=== PATIENT | female | born 1975 | race Caucasian/White ===

== ENCOUNTER → 2021-11-26 08:43 | Outpatient (CLI) | payer OTHER, MEDICAID, SELFPAY ==
[2021-11-26 09:37] LABS: Add Manual Diff / Slide Review NO; Basophils Absolute Auto 0 /uL (0-100); Basophils Percent Auto 0.7 % (0-2); Eosinophils Absolute Auto 100 /uL (0-450); Eosinophils Percent Auto 2.7 % (2-4); Hematocrit 40.6 % (36-46); Hemoglobin 13.6 g/dL (12.0-16.0); Lymphocytes Absolute Auto 1100 /uL (1100-4500); Lymphocytes Percent Auto 28.2 % (25-40); Mean Corpuscular HGB Conc 33.5 % (30-36); Mean Corpuscular Hemoglobin 30.2 PG (26-34); Mean Corpuscular Volume 90.1 fL (80-100); Monocytes Absolute Auto 300 /uL (0-900); Monocytes Percent Auto 7.9 % (3-14); Neutrophils Absolute Auto 2300 /uL (1500-7000); Neutrophils Percent Auto 60.5 % (50-75); Platelet Count 202 X10^3/uL (150-400); Red Blood Cell Count 4.51 X10^6/uL (4.0-5.2); Red Cell Distribution Width 13.9 % (11.6-14.8); White Blood Cell Count 3.8 X10^3/uL (4.5-11.0)
[2021-11-26 09:56] LABS: Erythrocyte Sedimentation Rate 8 MM/HR (0-20)
[2021-11-26 10:06] LABS: HEMOLYSIS < 15 (0-50)
[2021-11-26 10:13] LABS: Vitamin D 25 Hydroxy (D3) 79.3 ng/mL (30.0-100.0)
[2021-11-26 10:14] LABS: Alanine Aminotransferase 61 IU/L (<35); Albumin 4.5 g/dL (3.5-5.0); Albumin Globulin Ratio 1.4 (1.0-2.8); Alkaline Phosphatase 80 U/L (38-126); Aspartate Aminotransferase 40 IU/L (14-36); BUN Creatinine Ratio 23.5 (6-22); Bilirubin Total 0.5 mg/dL (0.2-1.3); Blood Urea Nitrogen 19 mg/dL (7-17); Calcium 9.4 mg/dL (8.4-10.2); Carbon Dioxide 26 mmol/L (22-32); Chloride 103 mmol/L (98-107); Cholesterol 173 mg/dL (140-199); Estimated Glomerular Filt Rate > 60 mL/min (>60); Globulin 3.2 g/dL (1.7-4.1); Glucose 102 mg/dL (70-100); HDL Cholesterol 59 mg/dL (40-60); LDL Cholesterol Calculated 100 mg/dL (<100); Potassium 4.2 mmol/L (3.4-5.1); Sodium 139 mmol/L (137-145); Total Protein 7.7 g/dL (6.3-8.2); Triglycerides 70 mg/dL (35-150)
[2021-11-26 19:57] LABS: Free T4, Direct Thyroxine 0.85 ng/dL (0.78-2.19); T4 Total Thyroxine 5.92 ug/dL (5.5-11.0); T7 (Free Thyroxine Index) 1.87 (1.65-3.89); Triiodothryronine T3 Uptake 31.6 % (23.5-40.5)
[2021-11-26 20:10] LABS: Thyroid Stimulating Hormone 0.912 uIU/mL (0.47-4.68)
[2021-11-27 02:18] LABS: Folate 12.2 ng/mL (2.76-20.0); Vitamin B12 910 pg/mL (239-931)
[2021-11-29 22:23] LABS: ANA Screen, IFA Positive (.)
== END ==
PROVIDERS: PCP Family Medicine; Referring Provider Family Medicine; Visit Provider Family Medicine
DX: M06.9 Rheumatoid arthritis, unspecified (principal); M32.9 Systemic lupus erythematosus, unspecified; Z13.220 Encounter for screening for lipoid disorders; E03.9 Hypothyroidism, unspecified; E56.9 Vitamin deficiency, unspecified
CPT/HCPCS: 36415; 80053; 80061; 82306; 82607; 82746; 84436; 84439; 84443; 84479; 85025; 85651; 86038

== ENCOUNTER → 2022-01-02 08:55 | Outpatient (CLI) | payer OTHER, MEDICAID, SELFPAY ==
[2022-01-02 10:44] LABS: Free T4, Direct Thyroxine 0.72 ng/dL (0.78-2.19)
[2022-01-02 10:45] LABS: Follicle Stimulating Hormone 19.9 mIU/mL; Luteinizing Hormone 27.2 mIU/mL; Prolactin 7.7 ng/mL (3.0-18.6)
[2022-01-02 10:58] LABS: Thyroid Stimulating Hormone 0.668 uIU/mL (0.47-4.68)
[2022-01-02 11:00] LABS: Estradiol, Total 85.6 pg/mL
[2022-01-03 10:15] LABS: Sex Hormone Binding Globulin 71.6 nmol/L (24.6-122.0)
[2022-01-04 00:09] LABS: Adrenocorticotropic Hormone 16.2 pg/mL (7.2-63.3)
[2022-01-04 22:38] LABS: IGF-1 199 ng/mL (74-239)
[2022-01-09 11:54] LABS: Testosterone % Fr + Wkly bound 8.4 % (3.0-18.0); Testosterone, Total 119.4 ng/dL (.)
== END ==
PROVIDERS: PCP Family Medicine; Referring Provider Family Medicine; Visit Provider Family Medicine
DX: N64.52 Nipple discharge (principal); E03.9 Hypothyroidism, unspecified; M06.9 Rheumatoid arthritis, unspecified; M32.9 Systemic lupus erythematosus, unspecified
CPT/HCPCS: 36415; 82024; 82670; 83001; 83002; 84144; 84146; 84270; 84305; 84403; 84439; 84443

== ENCOUNTER 2022-03-07 16:31 | Emergency (ER) | payer OTHER, MEDICAID, SELFPAY ==
[2022-03-07 16:40] VITALS: BP 129/84; PULSE 77; RESP 18; TEMP 36.4; O2SAT 99; BMI 24.1
--- NOTE | 2022-03-07 16:52 | DI.RAD.S_ITS ---
PROCEDURE: XR CHEST 1V INDICATIONS: chest pain TECHNIQUE: One view of the chest was acquired. COMPARISON: None. FINDINGS: Surgical changes and devices: None. Lungs and pleura: Lungs are clear. No pleural effusions or pneumothorax. Mediastinum: Mediastinal contours appear normal. Heart size is normal. Bones and chest wall: No suspicious bony lesions. Overlying soft tissues appear unremarkable. IMPRESSION: No acute cardiopulmonary abnormalities or focal airspace disease. Dictated by: Scar Eisenberg M.D. on 03/07/2022 at 17:59 Approved by: Scar Eisenberg M.D. on 03/07/2022 at 17:59
--- NOTE | 2022-03-07 17:02 | ED.CHESTPAIN ---
HPI - Chest Pain General Chief Complaint: Chest Pain Stated Complaint: Breast pain Time Seen by Provider: 03/07/22 17:02 Source: patient Mode of arrival: Ambulatory Limitations: no limitations Patient History alcohol intake frequency: holidays/special occasions only Substance Use Type: does not use Exam Initial Vital Signs Initial Vital Signs: Vital Signs Temperature 97.6 F 03/07/22 16:40 Pulse Rate 77 03/07/22 16:40 Respiratory Rate 18 03/07/22 16:40 Blood Pressure 129/84 03/07/22 16:40 Pulse Oximetry 99 03/07/22 16:40 Oxygen Delivery Method 03/07/22 16:40 Course Orders Ordered: ED Orders 03/07/22 16:52 XR chest 1V Stat COVID19 -Nasal RAPID/Pre-Proc Stat Complete Blood Count AUTO DIFF Stat Comprehensive Metabolic Panel Stat Lipase Stat Magnesium Stat Partial Thromboplastin Time Stat Prothrombin Time INR Stat Troponin & CK Cardiac Panel Stat EKG-12 Lead Stat Discontinued Medications Aspirin (Aspirin 81 Mg Chew Tab) 324 mg PO NOW ONE Stop: 03/07/22 16:53 Vital Signs Vital signs: Vital Signs - 8 hr 03/07/22 16:40 Temperature 97.6 F Pulse Rate 77 Respiratory Rate 18 Blood Pressure 129/84 Pulse Oximetry 99 Oxygen Delivery Method Room Air Discharge Plan Departure Referrals: Helga Nelson ARNP [Primary Care Provider] -
[2022-03-07 17:48] LABS: COVID19 -Nasal RAPID Negative (Negative)
[2022-03-07 17:49] LABS: Add Manual Diff / Slide Review NO; Basophils Absolute Auto 0 /uL (0-100); Basophils Percent Auto 0.6 % (0-2); Eosinophils Absolute Auto 100 /uL (0-450); Eosinophils Percent Auto 1.4 % (2-4); Hematocrit 40.2 % (36-46); Hemoglobin 13.5 g/dL (12.0-16.0); Lymphocytes Absolute Auto 1000 /uL (1100-4500); Lymphocytes Percent Auto 22.4 % (25-40); Mean Corpuscular HGB Conc 33.5 % (30-36); Mean Corpuscular Hemoglobin 29.9 PG (26-34); Mean Corpuscular Volume 89.3 fL (80-100); Monocytes Absolute Auto 300 /uL (0-900); Neutrophils Absolute Auto 3100 /uL (1500-7000); Neutrophils Percent Auto 68.6 % (50-75); Platelet Count 207 X10^3/uL (150-400); Red Cell Distribution Width 12.8 % (11.6-14.8); White Blood Cell Count 4.5 X10^3/uL (4.5-11.0)
[2022-03-07 17:51] LABS: Prothrombin Time 11.6 SECONDS (10.1-12.7)
[2022-03-07 17:54] LABS: PTT Partial Thromboplastin Tim 31 SECONDS (26-36)
[2022-03-07 17:57] LABS: Alanine Aminotransferase 49 IU/L (<35); Albumin 4.9 g/dL (3.5-5.0); Albumin Globulin Ratio 1.4 (1.0-2.8); Alkaline Phosphatase 87 U/L (38-126); Aspartate Aminotransferase 36 IU/L (14-36); BUN Creatinine Ratio 20.3 (6-22); Bilirubin Total 0.4 mg/dL (0.2-1.3); Blood Urea Nitrogen 14 mg/dL (7-17); Calcium 9.4 mg/dL (8.4-10.2); Carbon Dioxide 25 mmol/L (22-32); Chloride 99 mmol/L (98-107); Creatine Kinase 85 U/L (30-135); Estimated Glomerular Filt Rate > 60 mL/min (>60); Globulin 3.6 g/dL (1.7-4.1); Glucose 81 mg/dL (70-100); HEMOLYSIS < 15 (0-50); Lipase 42 U/L (23-300); Potassium 4.4 mmol/L (3.4-5.1); Sodium 138 mmol/L (137-145); Total Protein 8.5 g/dL (6.3-8.2)
[2022-03-07 18:08] LABS: Troponin I < 0.012 ng/mL (0.01-0.034)
--- NOTE | 2022-03-07 18:18 | ED_ITS ---
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 Patient states infections have been multiple times over the last few years they been less frequent since she is moved here to [place] from [place]. She states she had 2 episodes in 2020. She states both times the area opened up and drained on its own, she has had aspiration at least once before. Patient states it is the right breast she states that the skin is very thin on the underside but the breast itself feels very hard and full. She states painful with rotation of her neck and movement of her upper body. She denies any redness or warmth. Patient denies any fevers or chills. She had nausea and vomiting last night which has stopped since this afternoon. She denies any diarrhea or constipation, no urinary symptoms. Patient states no shortness of breath. No pain in the opposite breast. Patient surgical history she states she is had emergent x3, developed an subsequent abdominal infection several months after her last and had excision of the muscle. Patient states she had implants, she went back for reduction but the implants were kept in place. She is not actively . She denies tobacco, alcohol or illicit. Her primary care is Helga Nelson. Patient states her treatments before were in [place], she states that she did have a mammogram and ultrasound in December. She states she has a strange reaction to Benadryl, and she had a reaction with rash and itching after 3 days of ciprofloxacin. Related Data Previous Rx's Medication Instructions Recorded clindamycin HCl 300 mg capsule 300 mg PO QID #40 caps 03/07/22 Allergies Allergy/AdvReac Type Severity Reaction Status Date / Time No Known Drug Allergies Allergy Verified 03/07/22 20:08 Review of Systems Review of Systems ROS Unobtainable: All systems reviewed & are unremarkable except as noted in HPI and below Patient History alcohol intake frequency: holidays/special occasions only Substance Use Type: does not use Exam Narrative Exam Narrative: GENERAL: Alert and oriented x three, well-appearing female in mild distress. HEENT: Head normocephalic, atraumatic, EOMI, pupils reactive, face symmetric, moist mucous membranes NECK: Supple, full range of motion CARDIOVASCULAR: Regular rate and rhythm without murmurs, rubs or gallops. Patient has swelling of the right breast, no warmth, erythema swelling of the sk in, the right breast does appear somewhat indurated and hard. Patient has significant scarring on the underside of the breast but no fluctuance or open area or drainage. There are no open wounds. RESPIRATORY: Breath sounds equal bilaterally, no wheezes rales or rhonchi. ABDOMEN: Soft, nontender. Normoactive bowel sounds all 4 quadrants. No guarding or rebound, rigidity, no mass : No CVA tenderness EXTREMITIES: Normal range of motion, no clubbing or edema. Neurovascularly intact NEUROLOGICAL: Cranial nerves II through XII grossly intact. Moving all extremities SKIN: Warm, dry, no petechiae, no rashes or lesions. Initial Vital Signs Initial Vital Signs: Vital Signs Temperature 97.6 F 03/07/22 16:40 Pulse Rate 77 03/07/22 16:40 Respiratory Rate 18 03/07/22 16:40 Blood Pressure 129/84 03/07/22 16:40 Pulse Oximetry 99 03/07/22 16:40 Oxygen Delivery Method 03/07/22 16:40 Course Orders Ordered: ED Orders 03/07/22 16:52 XR chest 1V Stat EKG-12 Lead Stat 03/07/22 16:54 COVID19 -Nasal RAPID/Pre-Proc Stat 03/07/22 17:32 Complete Blood Count AUTO DIFF Stat Comprehensive Metabolic Panel Stat Lipase Stat Magnesium Stat Partial Thromboplastin Time Stat Prothrombin Time INR Stat Troponin & CK Cardiac Panel Stat 03/07/22 18:37 US breast RT limited Stat Discontinued Medications Aspirin (Aspirin 81 Mg Chew Tab) 324 mg PO NOW ONE Stop: 03/07/22 16:53 Clindamycin HCl (Clindamycin 150 Mg Capsule) 300 mg PO NOW ONE Stop: 03/07/22 20:04 Last Admin: 03/07/22 20:08 Dose: 300 mg Documented By: [facility]NG Vital Signs Vital signs: Vital Signs - 8 hr 03/07/22 20:06 Pulse Rate 74 Blood Pressure 119/75 Pulse Oximetry 98 Oxygen Delivery Method Room Air MDM - Chest Pain Lab Data Result diagrams: 03/07/22 17:32 03/07/22 17:32 Labs: Lab Results 03/07/22 03/07/22 03/07/22 Range/Units 16:54 17:32 17:32 WBC 4.5 (4.5-11.0) X10^3/uL RBC 4.50 (4.0-5.2) X10^6/uL Hgb 13.5 (12.0-16.0) g/dL Hct 40.2 (36-46) % MCV 89.3 (80-100) fL MCH 29.9 (26-34) PG MCHC 33.5 (30-36) % RDW 12.8 (11.6-14.8) % Plt Count 207 (150-400) X10^3/uL Neut % (Auto) 68.6 (50-75) % Lymph % (Auto) 22.4 L (25-40) % Coal % (Auto) 7.0 (3-14) % Eos % (Auto) 1.4 L (2-4) % Baso % (Auto) 0.6 (0-2) % Neut # (Auto) 3100 (9573-6494) /uL Lymph # (Auto) 1000 L (7156-8083) /uL Coal # (Auto) 300 (0-900) /uL Eos # (Auto) 100 (0-450) /uL Baso # (Auto) 0 (0-100) /uL PT 11.6 (10.1-12.7) SECONDS INR 1.0 (0.9-1.3) APTT 31 (26-36) SECONDS Sodium (137-145) mmol/L Potassium (3.4-5.1) mmol/L Chloride (98-107) mmol/L Carbon Dioxide (22-32) mmol/L BUN (7-17) mg/dL Creatinine (0.52-1.04) mg/dL Estimated GFR (>60) mL/min BUN/Creatinine Ratio (6-22) Glucose (70-100) mg/dL Calcium (8.4-10.2) mg/dL Magnesium (1.6-2.3) mg/dL Total Bilirubin (0.2-1.3) mg/dL AST (14-36) IU/L ALT (<35) IU/L Alkaline Phosphatase (38-126) U/L Total Creatine Kinase (30-135) U/L CK-MB (CK-2) CK-MB (CK-2) Rel Index Troponin I (0.01-0.034) ng/mL Total Protein (6.3-8.2) g/dL Albumin (3.5-5.0) g/dL Globulin (1.7-4.1) g/dL Albumin/Globulin Ratio (1.0-2.8) Lipase (23-300) U/L SARS-CoV-2 (PCR) Negative (Negative) 03/07/22 Range/Units 17:32 WBC (4.5-11.0) X10^3/uL RBC (4.0-5.2) X10^6/uL Hgb (12.0-16.0) g/dL Hct (36-46) % MCV (80-100) fL MCH (26-34) PG MCHC (30-36) % RDW (11.6-14.8) % Plt Count (150-400) X10^3/uL Neut % (Auto) (50-75) % Lymph % (Auto) (25-40) % Coal % (Auto) (3-14) % Eos % (Auto) (2-4) % Baso % (Auto) (0-2) % Neut # (Auto) (2142-7325) /uL Lymph # (Auto) (2840-8152) /uL Coal # (Auto) (0-900) /uL Eos # (Auto) (0-450) /uL Baso # (Auto) (0-100) /uL PT (10.1-12.7) SECONDS INR (0.9-1.3) APTT (26-36) SECONDS Sodium 138 (137-145) mmol/L Potassium 4.4 (3.4-5.1) mmol/L Chloride 99 (98-107) mmol/L Carbon Dioxide 25 (22-32) mmol/L BUN 14 (7-17) mg/dL Creatinine 0.69 (0.52-1.04) mg/dL Estimated GFR > 60 (>60) mL/min BUN/Creatinine Ratio 20.3 (6-22) Glucose 81 (70-100) mg/dL Calcium 9.4 (8.4-10.2) mg/dL Magnesium 2.0 (1.6-2.3) mg/dL Total Bilirubin 0.4 (0.2-1.3) mg/dL AST 36 (14-36) IU/L ALT 49 H (<35) IU/L Alkaline Phosphatase 87 (38-126) U/L Total Creatine Kinase 85 (30-135) U/L CK-MB (CK-2) TNP CK-MB (CK-2) Rel Index TNP Troponin I < 0.012 (0.01-0.034) ng/mL Total Protein 8.5 H (6.3-8.2) g/dL Albumin 4.9 (3.5-5.0) g/dL Globulin 3.6 (1.7-4.1) g/dL Albumin/Globulin Ratio 1.4 (1.0-2.8) Lipase 42 (23-300) U/L SARS-CoV-2 (PCR) (Negative) Imaging Data Chest x-ray: Radiologist's Impression: Close Chest X-Ray (Signed) Scar Eisenberg - 03/07/22 Launch?[place] [address] XRay Report Signed Patient: Yris Cadet MR#: [id number] : 1975 Acct:[id number] Age/Sex: 46 / F Date of Service: 03/07/22 Loc: ED Accession Number: [id number] ?? Procedure: XR chest 1V Ordering Provider: Lisa Tsang D.O. PROCEDURE:? XR CHEST 1V ? INDICATIONS:? chest pain ? TECHNIQUE:? One view of the chest was acquired.? ? COMPARISON:? None. ? FINDINGS:? ? Surgical changes and devices:? None.? ? Lungs and pleura:? Lungs are clear.? No pleural effusions or pneumothorax.? ? Mediastinum:? Mediastinal contours appear normal.? Heart size is normal.? ? Bones and chest wall:? No suspicious bony lesions.? Overlying soft tissues appear unremarkable.? ? IMPRESSION:? No acute cardiopulmonary abnormalities or focal airspace disease. ? Dictated by: Scar Eisenberg M.D. on 03/07/2022 at 17:59 ? ? Approved by: Scar Eisenberg M.D. on 03/07/2022 at 17:59?? breast US: Radiologist's Impression: No sonographic abnormalities identified upper aspect of right breast. diesel technician mechanic noted that the patient stated no discomfort or pain on the underside of the breast. ECG Data Attestation: I personally reviewed and interpreted this ECG as follows: Prior ECG tracings: not available for review Interpretation: Sinus rhythm rate of 70 6p are 126 QRS 82 QTC 14. No acute ST elevation or depression noted. MDM Narrative Medical decision making narrative: This is a 46-year-old female with history of autoimmune disease including lupus, rheumatoid arthritis, Sjogren's and hypothyroidism with recurrent breast abscess which she states has been drained but more typically just drain on their own. She is got induration pain and swelling of the breast, no warmth or erythema but highly suspicious based on her past history. She does not appear septic, she is nontoxic appearing. Her labs including CBC, CMP, LFTs, troponin and lipase are negative except for very mildly elevated LFTs. Chest x-ray was negative for acute change. EKG shows sinus rhythm. Patient is afebrile without tachycardic or white count here in the department. Patient's right wrist is indurated but without clear fluctuance. Ultrasound was obtained. Is negative for obvious abscess. Discussed with tach underside of the breast was not scanned but patient was adamant that that was not where her pain. Suspect recurrent mastitis, patient started on oral antibiotics she is unsure if she is ever had MRSA in the past. Did give her referral to follow-up with General surgery if she does develop abscess, she has good follow-up with primary care and they have obtained ultrasounds in the past. She has discussed with her physician about following with breast surgeon which I think is very appropriate but there is not 1 locally available and she is not been able to establish an appointment yet. Discharge Plan Departure Patient Disposition: Home Clinical Impression: Mastitis Instructions: DI for Mastitis Activity Restrictions/Additional Instructions: Follow-up with your physician for recheck, if you have persistent symptoms I would recommend repeat ultrasound imaging. If an abscess is found referral to surgery or a breast surgeon is recommended. We do not have a dedicated breast surgeon here locally but referral is included to Dr. Banuelos our local general surgeon. Take antibiotics until completely gone. Prescription sent to [facility] in [place]. Please return for fevers, increasing pain, new drainage, persistent vomiting, skin changes, worsening chest pain or shortness of breath or other new or concerning changes. Prescriptions: New clindamycin HCl 300 mg capsule 300 mg PO QID Qty: 40 0RF Referrals: Helga Nelson ARNP [Primary Care Provider] - Ofe Banuelos MD [Physician] - Stand Alone Forms: Patient Portal/API
--- NOTE | 2022-03-07 18:37 | DI.US.S_ITS ---
PROCEDURE: US BREAST RT LIMITED COMPARISON: None. INDICATIONS: PAIN, INDURATION; HISTORY ABSCESS FINDINGS: Multiple grayscale images of the area of clinical concern involving the right breast upper aspect near the 12 o'clock position demonstrates no sonographic abnormalities. No abnormal mass, abnormal abnormal fluid collection, no disturbed parenchymal architecture. Normal overlying skin. IMPRESSION: No sonographic abnormalities identified in the upper aspect of the right breast. BI-RADS 1: Negative Dictated by: Scar Eisenberg M.D. on 03/07/2022 at 19:49 Approved by: Scar Eisenberg M.D. on 03/07/2022 at 19:51
[2022-03-07 20:06] VITALS: BP 119/75; PULSE 74; O2SAT 98
[2022-03-07] MEDS: CLINDAMYCIN 150 MG CAPSULE 300 MG PO (20:08)
--- NOTE | 2022-03-07 20:14 | PC.NURSE ---
pt reports having pain in right breast. denies any erythemia on breast but painful to touch. has history of abscess in breast
== END 2022-03-07 20:18 | disposition home or self-care (01) ==
PROVIDERS: Emergency Medicine; Emergency Provider Emergency Medicine; PCP Family Medicine
DX: N61.0 Mastitis without abscess (principal); R07.9 Chest pain, unspecified; Z20.822 Contact with and (suspected) exposure to COVID-19
CPT/HCPCS: 71045; 76642; 80053; 82550; 83690; 83735; 84484; 85025; 85610; 85730; 87635; 93005; 93010; 99283; 99284; C9803

== ENCOUNTER → 2022-05-15 20:06 | Outpatient (ROUT) | payer OTHER, MEDICAID, SELFPAY ==
[2022-05-15 20:18] LABS: Appearance Urine UA CLEAR; Bilirubin Urine UA NEGATIVE (NEGATIVE); Color Urine UA YELLOW; Glucose Urine UA NEGATIVE (Negative); Ketones Urine UA NEGATIVE (NEGATIVE); Leukocyte Esterase Urine UA NEGATIVE (NEGATIVE); Nitrite Urine UA NEGATIVE (Negative); Occult Blood Urine UA NEGATIVE (Negative); Protein Urine UA NEGATIVE (Negative); Urobilinogen Urine UA 0.2 E.U./dL (0.2)
[2022-05-15 20:34] LABS: Bacteria Urine Occasional (0-1); Culture Indicated Urine Cult Not Indicated; RBC Urine 0-1/HPF (0-5/HPF); Squamous Epithelial Cell Urine 0-1 /HPF (0-5/HPF); WBC Urine 0-1/HPF (0-5/HPF)
== END ==
PROVIDERS: PCP Family Medicine; Visit Provider Family Medicine
DX: R35.0 Frequency of micturition (principal)
CPT/HCPCS: 81001

== ENCOUNTER → 2022-10-15 07:20 | Outpatient (CLI) | payer OTHER, MEDICAID, SELFPAY ==
[2022-10-15 09:28] LABS: Free T3, Triiodothyronine Free 3.26 pg/mL (2.77-5.27); Free T4, Direct Thyroxine 0.83 ng/dL (0.78-2.19)
[2022-10-16 06:36] LABS: Thyroid Peroxidase Antibodies <9 IU/mL (0-34)
== END ==
PROVIDERS: PCP Family Medicine; Referring Provider Nurse Practitioner; Visit Provider Nurse Practitioner
DX: E03.9 Hypothyroidism, unspecified (principal)
CPT/HCPCS: 36415; 83036; 84439; 84443; 84481; 86376

== ENCOUNTER 2023-03-14 13:46 | Emergency (ER) | payer OTHER, MEDICAID, SELFPAY ==
[2023-03-14] VITALS (15 sets, daily range): BP systolic 116–158; BP diastolic 60–95; PULSE 52–70; RESP 12–28; TEMP 36.8; O2SAT 95–100; BMI 24.6
--- NOTE | 2023-03-14 14:41 | ED.HA ---
HPI - Headache <Flower Swain PA-C - Last Filed: 03/14/23 19:41> General Chief Complaint: Headache Stated Complaint: Migraine two wks Time Seen by Provider: 03/14/23 14:00 Mode of arrival: Ambulatory History of Present Illness HPI Narrative: Patient is a 47-year-old female presenting to the emergency department for migraine which has been present for the last 2-3 weeks. She is notable history of factor 5 Leiden, lupus, Sjogren's and rheumatoid arthritis. She states she has not taking anticoagulants is not on any medications to treat her rheumatological conditions at present. She came in for evaluation because she is noted blurry vision for the last 2 3 days. She states that when she stands up, vision narrows like a tunnel, but while sitting her vision has a ?jiggling? sensation to it. She endorses light sensitivity, nausea for the last 2-3 weeks. She reports getting 2-3 hours of sleep at night. She endorses a previous clot in her left groin after the of her child 7 years ago. She states she chronically has body aches, but denies fever. On evaluation at the walk-in clinic this morning, she exhibited left hand weakness. She was not aware this before. She denies any previous consistent left-sided weakness. She denies any numbness. She endorses that her headache is present on the right side of her face and in a band around. He notes the pain radiates down into her right posterior neck. She denies tearing or nasal discharge. He denies fever but endorses right-sided neck pain. She reports she generally gets migraines monthly, but this most recent episode is behaving differently because it was lasting longer than normal. She does note that she has been avoiding driving recently because she feels her response time is lagging. She also reports that she seems to be dropping cups more frequently which she attributed to her rheumatological conditions. She states that she had a hysterectomy 7 years ago, but does state she uses hormone replacement therapy. Related Data Previous Rx's Medication Instructions Recorded clindamycin HCl 300 mg capsule 300 mg PO QID #40 caps 03/07/22 naproxen 500 mg tablet 500 mg PO BID PRN pain 7 days #14 03/14/23 tabs ondansetron 4 mg disintegrating 4 mg PO Q8H PRN nausea and 03/14/23 tablet vomiting 3 days #12 tabs Allergies Allergy/AdvReac Type Severity Reaction Status Date / Time No Known Drug Allergies Allergy Verified 03/14/23 13:14 Review of Systems <Flower Swain PA-C - Last Filed: 03/14/23 19:41> Review of Systems Narrative: see HPI Patient History <Flower Swain PA-C - Last Filed: 03/14/23 19:41> Social History Smoking Status: Never smoker Smoking Status: Never smoker alcohol intake frequency: holidays/special occasions only Substance Use Type: does not use Exam <Flower Swain PA-C - Last Filed: 03/14/23 19:41> Initial Vital Signs Initial Vital Signs: Vital Signs Temperature 98.2 F 03/14/23 14:01 Pulse Rate 70 03/14/23 14:01 Respiratory Rate 18 03/14/23 14:01 Blood Pressure 158/95 H 03/14/23 14:01 Pulse Oximetry 99 03/14/23 14:01 Oxygen Delivery Method Room Air 03/14/23 14:01 GENERAL: 47 year old patient appears stated age. Well-developed patient, in no acute distress. HEAD: Atraumatic. Normocephalic. EYES: Pupils equal round and reactive. Extraocular motions intact with some tenderness on movement. No scleral icterus. No injection or drainage. ENT: Nose without bleeding, purulent drainage. NECK: Trachea midline. Non tender. Tenderness to palpation of the right side of patient's neck. CARDIOVASCULAR: Regular rate and rhythm without murmurs, gallops, or rubs. RESPIRATORY: Clear to auscultation. Breath sounds equal bilaterally. No wheezes, rales, or rhonchi. 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 NEURO: AOx3. CN 3 through 12 intact bilaterally SKIN: No rash or erythema of visible areas <Chris Vasquez DO - Last Filed: 03/14/23 20:12> Initial Vital Signs Initial Vital Signs: Vital Signs Temperature 98.2 F 03/14/23 14:01 Pulse Rate 70 03/14/23 14:01 Respiratory Rate 18 03/14/23 14:01 Blood Pressure 158/95 H 03/14/23 14:01 Pulse Oximetry 99 03/14/23 14:01 Oxygen Delivery Method Room Air 03/14/23 14:01 Course <Flower Swain PA-C - Last Filed: 03/14/23 19:41> Orders Ordered: ED Orders 03/14/23 14:59 CT head/brain wo con Stat 03/14/23 15:00 Complete Blood Count AUTO DIFF Stat Comprehensive Metabolic Panel Stat Ethanol (ETOH) Stat PTT Partial Thromboplastin [place] Stat Prothrombin Time INR Stat Troponin & CK Cardiac Panel Stat 03/14/23 15:02 CT angio head and neck Stat 03/14/23 15:10 COVID19 -Nasal RAPID Stat 03/14/23 15:27 Test Urine Stat Urinalysis and Microscopic Stat Urine Drug Screen, Rapid Stat 03/14/23 16:17 MR head/brain wo con Stat Discontinued Medications Dexamethasone (Dexamethasone 10 Mg/Ml Vial) 10 mg PO NOW ONE Stop: 03/14/23 19:12 Last Admin: 03/14/23 19:17 Dose: 10 mg Documented By: KH Sodium Chloride (Normal Saline 0.9%) 1,000 mls @ 1,000 mls/hr IV BOLUS ONE Stop: 03/14/23 15:58 Last Infusion: 03/14/23 16:55 Dose: Infused Documented By: Admin: 03/14/23 15:40 Dose: 1,000 mls/hr Documented By: CTS Acetaminophen (Ofirmev) 1,000 mg in 100 mls @ 400 mls/hr IV NOW ONE Stop: 03/14/23 15:19 Last Infusion: 03/14/23 16:02 Dose: Infused Documented By: Admin: 03/14/23 15:41 Dose: 400 mls/hr Documented By: CTS Ketorolac Tromethamine (Ketorolac 30 Mg/Ml Vial) 15 mg IV NOW ONE Stop: 03/14/23 16:09 Last Admin: 03/14/23 16:26 Dose: 15 mg Documented By: CTS Ondansetron HCl (Ondansetron 4 Mg/2 Ml Inj) 4 mg IV NOW ONE Stop: 03/14/23 15:00 Last Admin: 03/14/23 15:40 Dose: 4 mg Documented By: CTS Oxycodone HCl (Oxycodone Ir 5 Mg Tablet) 5 mg PO NOW ONE Stop: 03/14/23 19:27 Last Admin: 03/14/23 19:31 Dose: 5 mg Documented By: LUIS Vital Signs Vital signs: Vital Signs - 8 hr 03/14/23 14:01 03/14/23 14:37 03/14/23 14:37 Temperature 98.2 F Pulse Rate 70 68 Respiratory Rate 18 Blood Pressure 158/95 H 129/60 Pulse Oximetry 99 99 Oxygen Delivery Method Room Air 03/14/23 15:00 03/14/23 15:01 03/14/23 15:01 Temperature Pulse Rate 61 62 Respiratory Rate Blood Pressure 133/62 Pulse Oximetry 99 99 Oxygen Delivery Method 03/14/23 15:31 03/14/23 15:32 03/14/23 15:32 Temperature Pulse Rate 65 60 Respiratory Rate 21 Blood Pressure 140/73 Pulse Oximetry 95 100 Oxygen Delivery Method 03/14/23 16:00 03/14/23 16:00 03/14/23 16:30 Temperature Pulse Rate 56 L 55 L Respiratory Rate 15 17 Blood Pressure 125/76 Pulse Oximetry 100 100 Oxygen Delivery Method 03/14/23 16:31 03/14/23 16:31 03/14/23 17:00 Temperature Pulse Rate 58 L 54 L Respiratory Rate 28 H 14 Blood Pressure 141/63 H Pulse Oximetry 98 99 Oxygen Delivery Method 03/14/23 17:00 03/14/23 17:30 03/14/23 17:30 Temperature Pulse Rate 56 L Respiratory Rate 16 Blood Pressure 127/62 116/65 Pulse Oximetry 100 Oxygen Delivery Method 03/14/23 18:19 03/14/23 18:19 03/14/23 18:30 Temperature Pulse Rate 55 L 53 L Respiratory Rate 16 Blood Pressure 133/64 Pulse Oximetry 97 97 Oxygen Delivery Method 03/14/23 18:30 03/14/23 19:00 03/14/23 19:00 Temperature Pulse Rate 52 L Respiratory Rate 13 Blood Pressure 124/61 130/65 Pulse Oximetry 97 Oxygen Delivery Method 03/14/23 19:30 03/14/23 19:30 Temperature Pulse Rate 53 L Respiratory Rate 12 Blood Pressure 136/74 Pulse Oximetry 100 Oxygen Delivery Method <Chris Vasquez DO - Last Filed: 03/14/23 20:12> Orders Ordered: ED Orders 03/14/23 14:59 CT head/brain wo con Stat 03/14/23 15:00 Complete Blood Count AUTO DIFF Stat Comprehensive Metabolic Panel Stat Ethanol (ETOH) Stat PTT Partial Thromboplastin [place] Stat Prothrombin Time INR Stat Troponin & CK Cardiac Panel Stat 03/14/23 15:02 CT angio head and neck Stat 03/14/23 15:10 COVID19 -Nasal RAPID Stat 03/14/23 15:27 Test Urine Stat Urinalysis and Microscopic Stat Urine Drug Screen, Rapid Stat 03/14/23 16:17 MR head/brain wo con Stat Discontinued Medications Dexamethasone (Dexamethasone 10 Mg/Ml Vial) 10 mg PO NOW ONE Stop: 03/14/23 19:12 Last Admin: 03/14/23 19:17 Dose: 10 mg Documented By: LUIS Sodium Chloride (Normal Saline 0.9%) 1,000 mls @ 1,000 mls/hr IV BOLUS ONE Stop: 03/14/23 15:58 Last Infusion: 03/14/23 16:55 Dose: Infused Documented By: Admin: 03/14/23 15:40 Dose: 1,000 mls/hr Documented By: WAN Acetaminophen (Ofirmev) 1,000 mg in 100 mls @ 400 mls/hr IV NOW ONE Stop: 03/14/23 15:19 Last Infusion: 03/14/23 16:02 Dose: Infused Documented By: Admin: 03/14/23 15:41 Dose: 400 mls/hr Documented By: WAN Ketorolac Tromethamine (Ketorolac 30 Mg/Ml Vial) 15 mg IV NOW ONE Stop: 03/14/23 16:09 Last Admin: 03/14/23 16:26 Dose: 15 mg Documented By: WAN Ondansetron HCl (Ondansetron 4 Mg/2 Ml Inj) 4 mg IV NOW ONE Stop: 03/14/23 15:00 Last Admin: 03/14/23 15:40 Dose: 4 mg Documented By: WAN Oxycodone HCl (Oxycodone Ir 5 Mg Tablet) 5 mg PO NOW ONE Stop: 03/14/23 19:27 Last Admin: 03/14/23 19:31 Dose: 5 mg Documented By: LUIS Vital Signs Vital signs: Vital Signs - 8 hr 03/14/23 14:01 03/14/23 14:37 03/14/23 14:37 Temperature 98.2 F Pulse Rate 70 68 Respiratory Rate 18 Blood Pressure 158/95 H 129/60 Pulse Oximetry 99 99 Oxygen Delivery Method Room Air 03/14/23 15:00 03/14/23 15:01 03/14/23 15:01 Temperature Pulse Rate 61 62 Respiratory Rate Blood Pressure 133/62 Pulse Oximetry 99 99 Oxygen Delivery Method 03/14/23 15:31 03/14/23 15:32 03/14/23 15:32 Temperature Pulse Rate 65 60 Respiratory Rate 21 Blood Pressure 140/73 Pulse Oximetry 95 100 Oxygen Delivery Method 03/14/23 16:00 03/14/23 16:00 03/14/23 16:30 Temperature Pulse Rate 56 L 55 L Respiratory Rate 15 17 Blood Pressure 125/76 Pulse Oximetry 100 100 Oxygen Delivery Method 03/14/23 16:31 03/14/23 16:31 03/14/23 17:00 Temperature Pulse Rate 58 L 54 L Respiratory Rate 28 H 14 Blood Pressure 141/63 H Pulse Oximetry 98 99 Oxygen Delivery Method 03/14/23 17:00 03/14/23 17:30 03/14/23 17:30 Temperature Pulse Rate 56 L Respiratory Rate 16 Blood Pressure 127/62 116/65 Pulse Oximetry 100 Oxygen Delivery Method 03/14/23 18:19 03/14/23 18:19 03/14/23 18:30 Temperature Pulse Rate 55 L 53 L Respiratory Rate 16 Blood Pressure 133/64 Pulse Oximetry 97 97 Oxygen Delivery Method 03/14/23 18:30 03/14/23 19:00 03/14/23 19:00 Temperature Pulse Rate 52 L Respiratory Rate 13 Blood Pressure 124/61 130/65 Pulse Oximetry 97 Oxygen Delivery Method 03/14/23 19:30 03/14/23 19:30 Temperature Pulse Rate 53 L Respiratory Rate 12 Blood Pressure 136/74 Pulse Oximetry 100 Oxygen Delivery Method MDM - Headache <Flower Swain PA-C - Last Filed: 03/14/23 19:41> Lab Data 03/14/23 15:00 03/14/23 15:00 Labs: Lab Results 03/14/23 03/14/23 03/14/23 Range/Units 15:00 15:10 15:27 WBC 3.4 L (4.5-11.0) X10^3/uL RBC 4.46 (4.0-5.2) X10^6/uL Hgb 13.1 (12.0-16.0) g/dL Hct 39.1 (36-46) % MCV 87.7 (80-100) fL MCH 29.4 (26-34) PG MCHC 33.5 (30-36) % RDW 13.1 (11.6-14.8) % Plt Count 197 (150-400) X10^3/uL Neut % (Auto) 56.9 (50-75) % Lymph % (Auto) 30.1 (25-40) % [place] % (Auto) 10.2 (3-14) % Eos % (Auto) 1.9 L (2-4) % Baso % (Auto) 0.9 (0-2) % Neut # (Auto) 1900 (8934-3647) /uL Lymph # (Auto) 1000 L (0591-7636) /uL [place] # (Auto) 300 (0-900) /uL Eos # (Auto) 100 (0-450) /uL Baso # (Auto) 0 (0-100) /uL PT 12.2 (9.4-12.5) SECONDS INR 1.1 (0.9-1.3) APTT 29 (25.1-36.5) SECONDS Sodium 137 (137-145) mmol/L Potassium 4.0 (3.4-5.1) mmol/L Chloride 100 (98-107) mmol/L Carbon Dioxide 29 (22-32) mmol/L BUN 17 (7-17) mg/dL Creatinine 0.81 (0.52-1.04) mg/dL Estimated GFR > 60 (>60) mL/min BUN/Creatinine Ratio 21.0 (6-22) Glucose 91 (70-100) mg/dL Calcium 9.7 (8.4-10.2) mg/dL Total Bilirubin 0.6 (0.2-1.3) mg/dL AST 35 (14-36) IU/L ALT 44 H (<35) IU/L Alkaline Phosphatase 73 (38-126) U/L Total Creatine Kinase 35 (30-135) U/L Troponin I < 0.012 (0.01-0.034) ng/mL Total Protein 8.0 (6.3-8.2) g/dL Albumin 4.5 (3.5-5.0) g/dL Globulin 3.5 (1.7-4.1) g/dL Albumin/Globulin Ratio 1.3 (1.0-2.8) Urine Color Yellow Urine Appearance Clear Urine pH 6.5 (4.5-8.0) Ur Specific [place] 1.010 (1.000-1.035) Urine Protein Negative (Negative) Urine Glucose (UA) Negative (Negative) g/dL Urine Ketones Negative (NEGATIVE) Urine Occult Blood Negative (Negative) Urine Nitrate Negative (Negative) Urine Bilirubin Negative (NEGATIVE) Urine Urobilinogen 0.2 (0.2) E.U./dL Ur Leukocyte Esterase Negative (NEGATIVE) Urine RBC None seen (0-5/HPF) Urine WBC None seen (0-5/HPF) Ur Squamous Epith Cells None seen (0-5/HPF) Urine Bacteria None seen (None) Ur Culture Indicated? Cult not indicated Urine Test Negative (Negative) U Opiates 300ng/mL cut Negative (Negative) Ur Oxycodone Screen Negative (Negative) Urine Methadone Screen Negative (Negative) Ur Barbiturates Screen Negative (Negative) U Tricyclic Antidepress Negative (Negative) Ur Phencyclidine Scrn Negative (Negative) Ur Amphetamines Screen Negative (Negative) U Methamphetamines Scrn Negative (Negative) Ur MDMA Scrn (Ecstasy) Negative (Negative) U Benzodiazepines Scrn Negative (Negative) Urine Cocaine Screen Negative (Negative) U Marijuana (THC) Screen Negative (Negative) Urine Specific [place] (Normal) Ethyl Alcohol < 10 ( - 10) mg/dL Ur Creatinine (Normal) SARS-CoV-2 (PCR) Negative (Negative) 03/14/23 Range/Units 15:27 WBC (4.5-11.0) X10^3/uL RBC (4.0-5.2) X10^6/uL Hgb (12.0-16.0) g/dL Hct (36-46) % MCV (80-100) fL MCH (26-34) PG MCHC (30-36) % RDW (11.6-14.8) % Plt Count (150-400) X10^3/uL Neut % (Auto) (50-75) % Lymph % (Auto) (25-40) % [place] % (Auto) (3-14) % Eos % (Auto) (2-4) % Baso % (Auto) (0-2) % Neut # (Auto) (8746-6824) /uL Lymph # (Auto) (2849-9705) /uL [place] # (Auto) (0-900) /uL Eos # (Auto) (0-450) /uL Baso # (Auto) (0-100) /uL PT (9.4-12.5) SECONDS INR (0.9-1.3) APTT (25.1-36.5) SECONDS Sodium (137-145) mmol/L Potassium (3.4-5.1) mmol/L Chloride (98-107) mmol/L Carbon Dioxide (22-32) mmol/L BUN (7-17) mg/dL Creatinine (0.52-1.04) mg/dL Estimated GFR (>60) mL/min BUN/Creatinine Ratio (6-22) Glucose (70-100) mg/dL Calcium (8.4-10.2) mg/dL Total Bilirubin (0.2-1.3) mg/dL AST (14-36) IU/L ALT (<35) IU/L Alkaline Phosphatase (38-126) U/L Total Creatine Kinase (30-135) U/L Troponin I (0.01-0.034) ng/mL Total Protein (6.3-8.2) g/dL Albumin (3.5-5.0) g/dL Globulin (1.7-4.1) g/dL Albumin/Globulin Ratio (1.0-2.8) Urine Color Urine Appearance Urine pH Normal (4.5-8.0) Ur Specific [place] (1.000-1.035) Urine Protein (Negative) Urine Glucose (UA) (Negative) g/dL Urine Ketones (NEGATIVE) Urine Occult Blood (Negative) Urine Nitrate (Negative) Urine Bilirubin (NEGATIVE) Urine Urobilinogen (0.2) E.U./dL Ur Leukocyte Esterase (NEGATIVE) Urine RBC (0-5/HPF) Urine WBC (0-5/HPF) Ur Squamous Epith Cells (0-5/HPF) Urine Bacteria (None) Ur Culture Indicated? Urine Test (Negative) U Opiates 300ng/mL cut (Negative) Ur Oxycodone Screen (Negative) Urine Methadone Screen (Negative) Ur Barbiturates Screen (Negative) U Tricyclic Antidepress (Negative) Ur Phencyclidine Scrn (Negative) Ur Amphetamines Screen (Negative) U Methamphetamines Scrn (Negative) Ur MDMA Scrn (Ecstasy) (Negative) U Benzodiazepines Scrn (Negative) Urine Cocaine Screen (Negative) U Marijuana (THC) Screen (Negative) Urine Specific [place] Normal (Normal) Ethyl Alcohol ( - 10) mg/dL Ur Creatinine Normal (Normal) SARS-CoV-2 (PCR) (Negative) Imaging Data CT scan - head: Radiologist's Impression: PROCEDURE: CT HEAD/BRAIN WO CON INDICATIONS: migraine x 2 weeks, left hand numbness since today, TECHNIQUE: Noncontrast 4.5 mm thick angled axial sections acquired from the foramen magnum to the vertex, with coronal and sagittal reformats. For radiation dose reduction, the following was used: automated exposure control, adjustment of mA and/or kV according to patient size. COMPARISON: None. FINDINGS: Image quality: Diagnostic. CSF spaces: Basal cisterns are patent. No extra-axial fluid collections. Ventricles are normal in size and shape. Brain: No midline shift. No intracranial masses or hemorrhage. Mora-white matter interface is normal. Skull and face: Calvarium and visualized facial bones are intact, without suspicious lesions. Sinuses: Visualized sinuses and mastoids are clear. IMPRESSION: No acute intracranial pathology. Dictated by: Kaveh Romero M.D. on 03/14/2023 at 15:47 Approved by: Kaveh Romero M.D. on 03/14/2023 at 15:47 CTA - brain/neck: Radiologist's Impression: PROCEDURE: CT ANGIO HEAD AND NECK INDICATIONS: migraine x 2 weeks, left hand numbness since today, TECHNIQUE: After the administration of intravenous contrast, 1 mm thick sections acquired from the aortic arch through the [place] of [place]. 3-dimensional [id number] (MIP) and/or volume rendering reformats were acquired of the central intracranial vasculature and neck separately. For radiation dose reduction, the following was used: automated exposure control, adjustment of mA and/or kV according to patient size. COMPARISON: [facility], CT, CT HEAD/BRAIN WO CON, 03/14/2023, 15:17. FINDINGS: Image quality: Diagnostic. BRAIN: Please see separately dictated CT head report of 03/14/2023. HEAD CT ANGIOGRAPHY: Anterior circulation: Intracranial internal carotid arteries are normal in size and flow. The flow within the paired anterior cerebral arteries is normal and symmetric. The flow within the middle cerebral arteries is normal and symmetric. The anterior communicating artery is seen. No aneurysms are seen. Posterior circulation: Visualized portions of the vertebral arteries demonstrate normal caliber, and join to form a normal appearing basilar artery. Flow within the posterior cerebral arteries is normal and symmetric. No aneurysms are seen. NECK CT ANGIOGRAPHY: Carotid system: The great vessels demonstrate a conventional anatomy as they arise from the aortic arch. The origins of the common carotid arteries appear patent. The common carotid arteries demonstrate normal caliber and courses. The bifurcation regions are both widely patent. The internal carotid arteries demonstrate normal calibers and courses. Posterior circulation: The origins of the vertebral arteries both appear widely patent. The more superior extracranial portions of both vertebral arteries also demonstrate normal courses and calibers. They join to form a normal appearing basilar artery. Soft tissues: Visualized neck soft tissues demonstrate greater than expected number of neck lymph nodes albeit all are not considered pathologic by size criteria. Bones: No suspicious bony lesions. Visualized cervical spine appears normally aligned. IMPRESSION: No areas of hemodynamically significant stenosis, vascular occlusion or aneurysmal dilation within the anterior circulation. No areas of hemodynamically significant stenosis, vascular occlusion or aneurysmal dilation within the posterior circulation. No areas of hemodynamically significant stenosis, vascular occlusion or aneurysmal dilation within the neck vasculature. Greater than expected number of lymph nodes within the neck. As noted above, there is no pathologic enlargement. No priors are available for comparison. This could be reactive in nature. Clinical correlation is recommended. Any quantitative measurements of stenosis were performed using NASCET criteria. Dictated by: Kailyn Delgado M.D. on 03/14/2023 at 15:40 Approved by: Kailyn Delgado M.D. on 03/14/2023 at 15:43 MR head/brain without contrast: Radiologist's Impression: PROCEDURE: MR HEAD/BRAIN WO CON INDICATIONS: migraine x 2 wks, left hand weak, visual change TECHNIQUE: Noncontrast axial T1 spin echo, axial T2 fast spin echo, sagittal and axial FLAIR, coronal T2 fast spin echo, axial gradient echo, axial diffusion and ADC through the brain. COMPARISON: [facility], CT, CT HEAD/BRAIN WO CON, 03/14/2023, 15:17. [facility], CT, CT ANGIO HEAD AND NECK, 03/14/2023, 15:17. FINDINGS: Image quality: Excellent. CSF Spaces: Basal cisterns are patent. No extra-axial fluid collections. Ventricles are normal in size and shape. Brain: No intracranial masses or hemorrhage. Mora/white matter interface is normal. Brainstem appears normal. Diffusion-weighted images demonstrate no acute infarct. No chronic ischemic insults. Normal intravascular flow voids are present. Skull and face: Calvarium has normal marrow signal. Orbits appear normal. Sinuses: Sinuses and mastoids are clear. IMPRESSION: No significant intracranial abnormality is seen. No findings of acute or subacute infarction can be seen. No brain edema or hemorrhage can be seen. To the limits of this noncontrast study, no findings masses or mass effect can be seen. Dictated by: Robin Jackson M.D. on 03/14/2023 at 17:25 Approved by: Robin Jackson M.D. on 03/14/2023 at 17:26 MDM Narrative Medical decision making narrative: CC: This is a new problem, uncertain diagnosis possible systemic effects. Patient is a 47-year-old female presenting for evaluation of headache x 2 weeks worse on the right side. She endorses visual blurriness over the last couple of days along with left hand weakness noted this morning. Complicating co-morbidities: RA, lupus, Sjogren's Data collected from: patient, Differential considered: Migraine, tension headache, CVA Exam documented above, pertinent findings include: Left hand weakness, decreased visual acuity in left eye, no other neurological deficits noted Lab Test results independently reviewed as above. Pertinent findings: negative, CBC, PT/INR, PTT, CMP, troponin, UA, urine drug screen, COVID, and ethanol all negative Imaging studies independently reviewed: CT head without contrast was negative, CT angio negative, due to patient taking hormone replacement therapy, we will continue with MR of brain without contrast, MR of brain returned with no abnormal findings. Consultations: Consulted Dr. Burks throughout case Treatments: 1515: 1 L normal saline, 4 mg of Zofran, 1000 mg of Tylenol, 15 mg of IV Toradol. Re-evaluations: 1610: No change in patient's migraine after receiving Zofran, Tylenol and starting saline infusion, we will add Toradol Discussed with Dr. Burks, if MRI is negative and patient's pain is continuing, may give 10 mg of dexamethasone help break intractable migraine. May send home with Zofran and something for pain. Discussed with Dr. Vasquez: Since patient is still experiencing pain, may try an opioid, patient has been given 5 mg of oxycodone. Patient's is planning to drive. Discussion: Patient is a 47-year-old female with previous history of monthly migraines, with onset of migraine x 2 weeks. She presented with left hand weakness starting today and visual disturbances x 2-3 days. Her symptoms mildly improved with Zofran, fluids and Toradol. CT head without contrast, CT angio were negative, MR brain without contrast was also negative. Comorbidities include RA, Sjogren's, lupus, factor 5 Leiden. She has a history of a clot 7 years ago in her left groin. She has not currently anticoagulated. Denies chest pain or shortness of breath. Physical exam showed left hand weakness as well as decreased vision on her left compared to her right eye. Discussed results with patient. As imaging is and blood work are negative, recommend that patient not be admitted, but recommend further follow up with primary care provider and inclusion manager given her extensive conditions. We will send with a prescription for Zofran and naproxen. After discussion of workup, patient feels safe to go home and continue follow up as discussed. Disposition: see below, along with detailed discharge instructions that have been reviewed with patient as well as indications for ED re-evaluation and additional outpatient follow up. <Chris Vasquez, DO - Last Filed: 03/14/23 20:12> Lab Data Labs: Lab Results 03/14/23 03/14/23 03/14/23 Range/Units 15:00 15:10 15:27 WBC 3.4 L (4.5-11.0) X10^3/uL RBC 4.46 (4.0-5.2) X10^6/uL Hgb 13.1 (12.0-16.0) g/dL Hct 39.1 (36-46) % MCV 87.7 (80-100) fL MCH 29.4 (26-34) PG MCHC 33.5 (30-36) % RDW 13.1 (11.6-14.8) % Plt Count 197 (150-400) X10^3/uL Neut % (Auto) 56.9 (50-75) % Lymph % (Auto) 30.1 (25-40) % [place] % (Auto) 10.2 (3-14) % Eos % (Auto) 1.9 L (2-4) % Baso % (Auto) 0.9 (0-2) % Neut # (Auto) 1900 (3009-2708) /uL Lymph # (Auto) 1000 L (5169-9131) /uL [place] # (Auto) 300 (0-900) /uL Eos # (Auto) 100 (0-450) /uL Baso # (Auto) 0 (0-100) /uL PT 12.2 (9.4-12.5) SECONDS INR 1.1 (0.9-1.3) APTT 29 (25.1-36.5) SECONDS Sodium 137 (137-145) mmol/L Potassium 4.0 (3.4-5.1) mmol/L Chloride 100 (98-107) mmol/L Carbon Dioxide 29 (22-32) mmol/L BUN 17 (7-17) mg/dL Creatinine 0.81 (0.52-1.04) mg/dL Estimated GFR > 60 (>60) mL/min BUN/Creatinine Ratio 21.0 (6-22) Glucose 91 (70-100) mg/dL Calcium 9.7 (8.4-10.2) mg/dL Total Bilirubin 0.6 (0.2-1.3) mg/dL AST 35 (14-36) IU/L ALT 44 H (<35) IU/L Alkaline Phosphatase 73 (38-126) U/L Total Creatine Kinase 35 (30-135) U/L Troponin I < 0.012 (0.01-0.034) ng/mL Total Protein 8.0 (6.3-8.2) g/dL Albumin 4.5 (3.5-5.0) g/dL Globulin 3.5 (1.7-4.1) g/dL Albumin/Globulin Ratio 1.3 (1.0-2.8) Urine Color Yellow Urine Appearance Clear Urine pH 6.5 (4.5-8.0) Ur Specific [place] 1.010 (1.000-1.035) Urine Protein Negative (Negative) Urine Glucose (UA) Negative (Negative) g/dL Urine Ketones Negative (NEGATIVE) Urine Occult Blood Negative (Negative) Urine Nitrate Negative (Negative) Urine Bilirubin Negative (NEGATIVE) Urine Urobilinogen 0.2 (0.2) E.U./dL Ur Leukocyte Esterase Negative (NEGATIVE) Urine RBC None seen (0-5/HPF) Urine WBC None seen (0-5/HPF) Ur Squamous Epith Cells None seen (0-5/HPF) Urine Bacteria None seen (None) Ur Culture Indicated? Cult not indicated Urine Test Negative (Negative) U Opiates 300ng/mL cut Negative (Negative) Ur Oxycodone Screen Negative (Negative) Urine Methadone Screen Negative (Negative) Ur Barbiturates Screen Negative (Negative) U Tricyclic Antidepress Negative (Negative) Ur Phencyclidine Scrn Negative (Negative) Ur Amphetamines Screen Negative (Negative) U Methamphetamines Scrn Negative (Negative) Ur MDMA Scrn (Ecstasy) Negative (Negative) U Benzodiazepines Scrn Negative (Negative) Urine Cocaine Screen Negative (Negative) U Marijuana (THC) Screen Negative (Negative) Urine Specific [place] (Normal) Ethyl Alcohol < 10 ( - 10) mg/dL Ur Creatinine (Normal) SARS-CoV-2 (PCR) Negative (Negative) 03/14/23 Range/Units 15:27 WBC (4.5-11.0) X10^3/uL RBC (4.0-5.2) X10^6/uL Hgb (12.0-16.0) g/dL Hct (36-46) % MCV (80-100) fL MCH (26-34) PG MCHC (30-36) % RDW (11.6-14.8) % Plt Count (150-400) X10^3/uL Neut % (Auto) (50-75) % Lymph % (Auto) (25-40) % [place] % (Auto) (3-14) % Eos % (Auto) (2-4) % Baso % (Auto) (0-2) % Neut # (Auto) (5943-7882) /uL Lymph # (Auto) (1431-1632) /uL [place] # (Auto) (0-900) /uL Eos # (Auto) (0-450) /uL Baso # (Auto) (0-100) /uL PT (9.4-12.5) SECONDS INR (0.9-1.3) APTT (25.1-36.5) SECONDS Sodium (137-145) mmol/L Potassium (3.4-5.1) mmol/L Chloride (98-107) mmol/L Carbon Dioxide (22-32) mmol/L BUN (7-17) mg/dL Creatinine (0.52-1.04) mg/dL Estimated GFR (>60) mL/min BUN/Creatinine Ratio (6-22) Glucose (70-100) mg/dL Calcium (8.4-10.2) mg/dL Total Bilirubin (0.2-1.3) mg/dL AST (14-36) IU/L ALT (<35) IU/L Alkaline Phosphatase (38-126) U/L Total Creatine Kinase (30-135) U/L Troponin I (0.01-0.034) ng/mL Total Protein (6.3-8.2) g/dL Albumin (3.5-5.0) g/dL Globulin (1.7-4.1) g/dL Albumin/Globulin Ratio (1.0-2.8) Urine Color Urine Appearance Urine pH Normal (4.5-8.0) Ur Specific [place] (1.000-1.035) Urine Protein (Negative) Urine Glucose (UA) (Negative) g/dL Urine Ketones (NEGATIVE) Urine Occult Blood (Negative) Urine Nitrate (Negative) Urine Bilirubin (NEGATIVE) Urine Urobilinogen (0.2) E.U./dL Ur Leukocyte Esterase (NEGATIVE) Urine RBC (0-5/HPF) Urine WBC (0-5/HPF) Ur Squamous Epith Cells (0-5/HPF) Urine Bacteria (None) Ur Culture Indicated? Urine Test (Negative) U Opiates 300ng/mL cut (Negative) Ur Oxycodone Screen (Negative) Urine Methadone Screen (Negative) Ur Barbiturates Screen (Negative) U Tricyclic Antidepress (Negative) Ur Phencyclidine Scrn (Negative) Ur Amphetamines Screen (Negative) U Methamphetamines Scrn (Negative) Ur MDMA Scrn (Ecstasy) (Negative) U Benzodiazepines Scrn (Negative) Urine Cocaine Screen (Negative) U Marijuana (THC) Screen (Negative) Urine Specific [place] Normal (Normal) Ethyl Alcohol ( - 10) mg/dL Ur Creatinine Normal (Normal) SARS-CoV-2 (PCR) (Negative) Discharge Plan Departure Patient Disposition: Home Clinical Impression: Migraine Qualifiers: Migraine type: unspecified Status migrainosus presence: with status migrainosus Intractability: intractable Qualified Code(s): G43.911 - Migraine, unspecified, intractable, with status migrainosus Instructions: DI for Migraine Activity Restrictions/Additional Instructions: Thank you for coming in today for your care. You received CT imaging without contrast, CT angio of your brain, and MRI of your brain without contrast which did not show any evidence of stroke or any other abnormalities. You were treated with IV normal saline, 15 mg Toradol, 5 mg of oxycodone, 10 mg of dexamethasone, 4 mg of Zofran. Recommend continued follow up with primary care provider and continue working on getting established with a inclusion manager. Please follow up in the emergency department if pain should worsen, you should develop new neurological symptoms such as worsening weakness, numbness, or weakness in the new area or other concerning signs or symptoms. You have been given a prescription for Zofran to help reduce nausea as well as naproxen. Prescriptions: New naproxen 500 mg tablet 500 mg PO BID PRN (Reason: pain) 7 Days Qty: 14 0RF ondansetron 4 mg tablet,disintegrating 4 mg PO Q8H PRN (Reason: nausea and vomiting) 3 Days Qty: 12 0RF Rx Instructions: May take 1-2 tablets as needed No Action clindamycin HCl 300 mg capsule 300 mg PO QID Qty: 40 0RF Referrals: Susy Khoury MD [Primary Care Provider] - Stand Alone Forms: Patient Portal/API ED Sign-out <Chris Vasquez, - Last Filed: 03/14/23 20:12> Cosign ED Attending Cosignature Attestation: Dr Vasquez Co-Sign Statement: I was available for consultation during this patient's emergency department visit. This chart is signed by myself for administrative purposes only. I did not have direct contact with this patient during this visit. They were seen independently by the APC.
--- NOTE | 2023-03-14 14:59 | DI.CT.S_ITS ---
PROCEDURE: CT HEAD/BRAIN WO CON INDICATIONS: migraine x 2 weeks, left hand numbness since today, TECHNIQUE: Noncontrast 4.5 mm thick angled axial sections acquired from the foramen magnum to the vertex, with coronal and sagittal reformats. For radiation dose reduction, the following was used: automated exposure control, adjustment of mA and/or kV according to patient size. COMPARISON: None. FINDINGS: Image quality: Diagnostic. CSF spaces: Basal cisterns are patent. No extra-axial fluid collections. Ventricles are normal in size and shape. Brain: No midline shift. No intracranial masses or hemorrhage. Mora-white matter interface is normal. Skull and face: Calvarium and visualized facial bones are intact, without suspicious lesions. Sinuses: Visualized sinuses and mastoids are clear. IMPRESSION: No acute intracranial pathology. Dictated by: Kaveh Romero M.D. on 03/14/2023 at 15:47 Approved by: Kaveh Romero M.D. on 03/14/2023 at 15:47
--- NOTE | 2023-03-14 15:02 | DI.CT.S_ITS ---
PROCEDURE: CT ANGIO HEAD AND NECK INDICATIONS: migraine x 2 weeks, left hand numbness since today, TECHNIQUE: After the administration of intravenous contrast, 1 mm thick sections acquired from the aortic arch through the [place] of [place]. 3-dimensional ozspfcj-dfwzpxzje-aabmjqvbtt (MIP) and/or volume rendering reformats were acquired of the central intracranial vasculature and neck separately. For radiation dose reduction, the following was used: automated exposure control, adjustment of mA and/or kV according to patient size. COMPARISON: [facility], CT, CT HEAD/BRAIN WO CON, 03/14/2023, 15:17. FINDINGS: Image quality: Diagnostic. BRAIN: Please see separately dictated CT head report of 03/14/2023. HEAD CT ANGIOGRAPHY: Anterior circulation: Intracranial internal carotid arteries are normal in size and flow. The flow within the paired anterior cerebral arteries is normal and symmetric. The flow within the middle cerebral arteries is normal and symmetric. The anterior communicating artery is seen. No aneurysms are seen. Posterior circulation: Visualized portions of the vertebral arteries demonstrate normal caliber, and join to form a normal appearing basilar artery. Flow within the posterior cerebral arteries is normal and symmetric. No aneurysms are seen. NECK CT ANGIOGRAPHY: Carotid system: The great vessels demonstrate a conventional anatomy as they arise from the aortic arch. The origins of the common carotid arteries appear patent. The common carotid arteries demonstrate normal caliber and courses. The bifurcation regions are both widely patent. The internal carotid arteries demonstrate normal calibers and courses. Posterior circulation: The origins of the vertebral arteries both appear widely patent. The more superior extracranial portions of both vertebral arteries also demonstrate normal courses and calibers. They join to form a normal appearing basilar artery. Soft tissues: Visualized neck soft tissues demonstrate greater than expected number of neck lymph nodes albeit all are not considered pathologic by size criteria. Bones: No suspicious bony lesions. Visualized cervical spine appears normally aligned. IMPRESSION: No areas of hemodynamically significant stenosis, vascular occlusion or aneurysmal dilation within the anterior circulation. No areas of hemodynamically significant stenosis, vascular occlusion or aneurysmal dilation within the posterior circulation. No areas of hemodynamically significant stenosis, vascular occlusion or aneurysmal dilation within the neck vasculature. Greater than expected number of lymph nodes within the neck. As noted above, there is no pathologic enlargement. No priors are available for comparison. This could be reactive in nature. Clinical correlation is recommended. Any quantitative measurements of stenosis were performed using NASCET criteria. Dictated by: Kailyn Delgado M.D. on 03/14/2023 at 15:40 Approved by: Kailyn Delgado M.D. on 03/14/2023 at 15:43
--- NOTE | 2023-03-14 15:14 | PC.NURSE ---
Patient went to CT with lighting technician.
[2023-03-14 15:16] LABS: Add Manual Diff / Slide Review NO; Basophils Absolute Auto 0 /uL (0-100); Basophils Percent Auto 0.9 % (0-2); Eosinophils Absolute Auto 100 /uL (0-450); Eosinophils Percent Auto 1.9 % (2-4); Hematocrit 39.1 % (36-46); Hemoglobin 13.1 g/dL (12.0-16.0); INR 1.1 (0.9-1.3); Lymphocytes Absolute Auto 1000 /uL (1100-4500); Lymphocytes Percent Auto 30.1 % (25-40); Mean Corpuscular HGB Conc 33.5 % (30-36); Mean Corpuscular Hemoglobin 29.4 PG (26-34); Mean Corpuscular Volume 87.7 fL (80-100); Monocytes Absolute Auto 300 /uL (0-900); Monocytes Percent Auto 10.2 % (3-14); Neutrophils Absolute Auto 1900 /uL (1500-7000); Neutrophils Percent Auto 56.9 % (50-75); Platelet Count 197 X10^3/uL (150-400); Prothrombin Time 12.2 SECONDS (9.4-12.5); Red Blood Cell Count 4.46 X10^6/uL (4.0-5.2); Red Cell Distribution Width 13.1 % (11.6-14.8); White Blood Cell Count 3.4 X10^3/uL (4.5-11.0)
[2023-03-14 15:19] LABS: PTT Partial Thromboplastin Tim 29 SECONDS (25.1-36.5)
[2023-03-14 15:22] LABS: Alanine Aminotransferase 44 IU/L (<35); Albumin 4.5 g/dL (3.5-5.0); Albumin Globulin Ratio 1.3 (1.0-2.8); Alkaline Phosphatase 73 U/L (38-126); Aspartate Aminotransferase 35 IU/L (14-36); Bilirubin Total 0.6 mg/dL (0.2-1.3); Blood Urea Nitrogen 17 mg/dL (7-17); Calcium 9.7 mg/dL (8.4-10.2); Carbon Dioxide 29 mmol/L (22-32); Chloride 100 mmol/L (98-107); Creatine Kinase 35 U/L (30-135); Estimated Glomerular Filt Rate > 60 mL/min (>60); Ethanol (ETOH) < 10 mg/dL; Globulin 3.5 g/dL (1.7-4.1); Glucose 91 mg/dL (70-100); HEMOLYSIS < 15 (0-50); Sodium 137 mmol/L (137-145)
[2023-03-14 15:31] LABS: COVID19 -Nasal RAPID Negative (Negative)
[2023-03-14 15:33] LABS: Ur Creatinine Normal (Normal); Ur Specific Gravity Normal (Normal); Urine pH Normal (Normal)
[2023-03-14 15:33] LABS: Troponin I < 0.012 ng/mL (0.01-0.034)
[2023-03-14 15:34] LABS: UR Morphine/Opiate cutoff 300 Negative (Negative); Urine Amphetamines Negative (Negative); Urine Barbiturates Negative (Negative); Urine Benzodiazepines Negative (Negative); Urine Cocaine Negative (Negative); Urine MDMA Negative (Negative); Urine Methadone Negative (Negative); Urine Methamphetamines Negative (Negative); Urine Oxycodone Negative (Negative); Urine Phencyclidine Negative (Negative); Urine Tetrahydrocannabinol Negative (Negative); Urine Tricyclic Antidepressant Negative (Negative)
[2023-03-14] MEDS: SODIUM CHLORIDE 0.9% 1,000 ML 1000 ML IV (15:40)
[2023-03-14] MEDS: ONDANSETRON 4 MG/2 ML INJ IV (15:40)
[2023-03-14] MEDS: ACETAMINOPHEN IV 1,000 MG/100 ML VIAL 400 MG IV (15:41)
[2023-03-14 15:45] LABS: Appearance Urine UA CLEAR; Bilirubin Urine UA NEGATIVE (NEGATIVE); Color Urine UA YELLOW; Glucose Urine UA NEGATIVE (Negative); Ketones Urine UA NEGATIVE (NEGATIVE); Leukocyte Esterase Urine UA NEGATIVE (NEGATIVE); Nitrite Urine UA NEGATIVE (Negative); Occult Blood Urine UA NEGATIVE (Negative); Protein Urine UA NEGATIVE (Negative); Urobilinogen Urine UA 0.2 E.U./dL (0.2); pH Urine UA 6.5 (4.5-8.0)
[2023-03-14 15:46] LABS: Bacteria Urine None Seen; Culture Indicated Urine Cult Not Indicated; RBC Urine None Seen (0-5/HPF); Squamous Epithelial Cell Urine None Seen (0-5/HPF); WBC Urine None Seen (0-5/HPF)
[2023-03-14 15:47] LABS: Pregnancy Test Urine Negative (Negative)
--- NOTE | 2023-03-14 16:17 | DI.MRI.S_ITS ---
PROCEDURE: MR HEAD/BRAIN WO CON INDICATIONS: migraine x 2 wks, left hand weak, visual change TECHNIQUE: Noncontrast axial T1 spin echo, axial T2 fast spin echo, sagittal and axial FLAIR, coronal T2 fast spin echo, axial gradient echo, axial diffusion and ADC through the brain. COMPARISON: [facility], CT, CT HEAD/BRAIN WO CON, 03/14/2023, 15:17. [facility], CT, CT ANGIO HEAD AND NECK, 03/14/2023, 15:17. FINDINGS: Image quality: Excellent. CSF Spaces: Basal cisterns are patent. No extra-axial fluid collections. Ventricles are normal in size and shape. Brain: No intracranial masses or hemorrhage. Mora/white matter interface is normal. Brainstem appears normal. Diffusion-weighted images demonstrate no acute infarct. No chronic ischemic insults. Normal intravascular flow voids are present. Skull and face: Calvarium has normal marrow signal. Orbits appear normal. Sinuses: Sinuses and mastoids are clear. IMPRESSION: No significant intracranial abnormality is seen. No findings of acute or subacute infarction can be seen. No brain edema or hemorrhage can be seen. To the limits of this noncontrast study, no findings masses or mass effect can be seen. Dictated by: Robin Jackson M.D. on 03/14/2023 at 17:25 Approved by: Robin Jackson M.D. on 03/14/2023 at 17:26
[2023-03-14] MEDS: KETOROLAC 30 MG/ML VIAL 15 MG IV (16:26)
[2023-03-14] MEDS: DEXAMETHASONE 10 MG/ML VIAL PO (19:17)
[2023-03-14] MEDS: OXYCODONE IR 5 MG TABLET PO (19:31)
== END 2023-03-14 19:43 | disposition home or self-care (01) ==
PROVIDERS: Emergency Provider Physician Assistant; PCP Student in an Organized Health Care Education/Training Program
DX: G43.911 Migraine, unspecified, intractable, with status migrainosus (principal); Z20.822 Contact with and (suspected) exposure to COVID-19
CPT/HCPCS: 36415; 70450; 70496; 70498; 70551; 80053; 80305; 80320; 81001; 81025; 82550; 84484; 85025; 85610; 85730; 87635; 96365; 96375; 99284; 99285; J0136; J1100; J1885; J2405

== ENCOUNTER → 2023-04-02 11:16 | Outpatient (CLI) | payer OTHER, MEDICAID, SELFPAY | PROVIDERS: PCP Student in an Organized Health Care Education/Training Program; Visit Provider Nurse Practitioner Family | DX: J02.9 Acute pharyngitis, unspecified (principal) | CPT/HCPCS: 87070; 87880 ==

== ENCOUNTER → 2023-04-22 09:04 | Outpatient (CLI) | payer OTHER, MEDICAID, SELFPAY ==
[2023-04-22 10:27] LABS: Alanine Aminotransferase 30 IU/L (<35); Albumin 4.5 g/dL (3.5-5.0); Albumin Globulin Ratio 1.5 (1.0-2.8); Alkaline Phosphatase 73 U/L (38-126); Aspartate Aminotransferase 27 IU/L (14-36); Bilirubin Total 0.6 mg/dL (0.2-1.3); Blood Urea Nitrogen 15 mg/dL (7-17); Calcium 9.4 mg/dL (8.4-10.2); Carbon Dioxide 27 mmol/L (22-32); Chloride 105 mmol/L (98-107); Estimated Glomerular Filt Rate > 60 mL/min (>60); Globulin 3.1 g/dL (1.7-4.1); Glucose 91 mg/dL (70-100); HEMOLYSIS < 15 (0-50); Potassium 4.4 mmol/L (3.4-5.1); Sodium 139 mmol/L (137-145); Total Protein 7.6 g/dL (6.3-8.2)
[2023-04-22 10:34] LABS: Hemoglobin A1C% w Est Avg Glu 5.3 % (4.0-6.0)
[2023-04-22 10:51] LABS: TSH w/ Reflex to FT4 1.41 uIU/mL (0.47-4.68)
== END ==
PROVIDERS: PCP Student in an Organized Health Care Education/Training Program; Referring Provider Student in an Organized Health Care Education/Training Program; Visit Provider Student in an Organized Health Care Education/Training Program
DX: Z83.3 Family history of diabetes mellitus (principal); E03.9 Hypothyroidism, unspecified
CPT/HCPCS: 36415; 80053; 83036; 84443

== ENCOUNTER → 2023-11-12 16:32 | Outpatient (CLI) | payer OTHER, MEDICAID, SELFPAY ==
--- NOTE | 2023-11-12 16:33 | DI.RAD.S_ITS ---
PROCEDURE: XR STERNUM MIN 2V INDICATIONS: Sternum pain with cough TECHNIQUE: 2 views of the sternum acquired. COMPARISON: None. FINDINGS: No acute, displaced sternal or manubrial fracture. No anterior mediastinal opacification. IMPRESSION: No acute, displaced sternal or manubrial fracture. Dictated by: Rojas Smith M.D. on 11/12/2023 at 21:17 Approved by: Rojas Smith M.D. on 11/12/2023 at 21:18
== END ==
PROVIDERS: PCP Student in an Organized Health Care Education/Training Program; Referring Provider Nurse Practitioner Family; Visit Provider Nurse Practitioner Family
DX: R07.89 Other chest pain (principal)
CPT/HCPCS: 71120

== ENCOUNTER → 2023-12-15 09:18 | Outpatient (CLI) | payer OTHER, MEDICAID, SELFPAY ==
[2023-12-15 10:22] LABS: Add Manual Diff / Slide Review NO; Basophils Absolute Auto 0 /uL (0-100); Basophils Percent Auto 0.7 % (0-2); Eosinophils Absolute Auto 100 /uL (0-450); Eosinophils Percent Auto 2.5 % (2-4); Hemoglobin 12.9 g/dL (12.0-16.0); Lymphocytes Absolute Auto 1000 /uL (1100-4500); Mean Corpuscular HGB Conc 34.1 % (30-36); Mean Corpuscular Hemoglobin 29.7 PG (26-34); Mean Corpuscular Volume 87.1 fL (80-100); Monocytes Absolute Auto 300 /uL (0-900); Monocytes Percent Auto 9.5 % (3-14); Neutrophils Absolute Auto 1600 /uL (1500-7000); Neutrophils Percent Auto 53.3 % (50-75); Platelet Count 202 X10^3/uL (150-400); Red Blood Cell Count 4.36 X10^6/uL (4.0-5.2); Red Cell Distribution Width 13.8 % (11.6-14.8)
[2023-12-15 10:51] LABS: Alanine Aminotransferase 42 IU/L (<35); Albumin 4.2 g/dL (3.5-5.0); Albumin Globulin Ratio 1.6 (1.0-2.8); Alkaline Phosphatase 89 U/L (38-126); Aspartate Aminotransferase 30 IU/L (14-36); BUN Creatinine Ratio 17.9 (6-22); Bilirubin Total 0.4 mg/dL (0.2-1.3); Blood Urea Nitrogen 14 mg/dL (7-17); C-Reactive Protein Quant < 0.5 mg/dL (<1.0); Calcium 9.5 mg/dL (8.4-10.2); Carbon Dioxide 27 mmol/L (22-32); Chloride 105 mmol/L (98-107); Estimated Glomerular Filt Rate > 60 mL/min (>60); Globulin 2.6 g/dL (1.7-4.1); Glucose 91 mg/dL (70-100); HEMOLYSIS < 15 (0-50); Potassium 4.3 mmol/L (3.4-5.1); Sodium 137 mmol/L (137-145); Total Protein 6.8 g/dL (6.3-8.2)
[2023-12-15 11:42] LABS: Erythrocyte Sedimentation Rate 11 MM/HR (0-20)
== END ==
PROVIDERS: PCP Student in an Organized Health Care Education/Training Program; Referring Provider Student in an Organized Health Care Education/Training Program; Visit Provider Student in an Organized Health Care Education/Training Program
DX: R63.4 Abnormal weight loss (principal)
CPT/HCPCS: 36415; 80053; 85025; 85651; 86140

== ENCOUNTER 2024-04-14 07:30 | Outpatient (RCR) | payer OTHER, MEDICAID, SELFPAY ==
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
--- NOTE | 2024-02-12 11:23 | PT.OTN ---
Current Diagnoses Stiffness of right wrist, not elsewhere classified (02/12/24) Stiffness of left wrist, not elsewhere classified (02/12/24) Stiffness of right hip, not elsewhere classified (02/12/24) Stiffness of left hip, not elsewhere classified (02/12/24) Stiffness of right ankle, not elsewhere classified (02/12/24) Stiffness of left ankle, not elsewhere classified (02/12/24) Stiffness of right foot, not elsewhere classified (02/12/24) Stiffness of left foot, not elsewhere classified (02/12/24) Systemic lupus erythematosus, unspecified (02/12/24) Other lack of coordination (02/12/24) Weakness (02/12/24) Physical Therapy Treatment Note PT-OP-A Visit Information Start: 02/09/24 16:09 Freq: Status: Active Protocol: Document 02/12/24 08:19 NM (Rec: 02/12/24 09:02 NM [id number]) Out-Patient Physical Therapy Visit Information Visit Information Visit Type Treatment Note Visit Start Time 08:20 Visit Stop Time 08:55 Visit Number 2 units (visit 2 post eval) Evaluation Information Evaluation Date 02/10/24 Precautions Precautions feels like shaky, dizzy/ lightheaded when too fatigued RA and lupus, sjogren's PT-OP-B Current Condition Start: 02/09/24 16:09 Freq: Status: Active Protocol: Document 02/10/24 10:44 NM (Rec: 02/10/24 11:30 NM [id number]) Current Condition History of Current Condition Onset Date chronic History of Current Condition Pt reports a significant amount of injuries. Pt reports pain in her hands, feet, hips , ribs. Has RA and lupus. Pt was diagnosed as a teen. Currently not on any medication for lupus or RA at this time. Pt moved from [place] to [place] in 2020. Pt was on metrotrexate and prednisone. Pt reports impairments with sleeping due to L hip (also R), ADLs/IADLs due to fatigue and weakness, gripping (dropping objects). Hx of hairline fracture L hip. Pt reports that she had had hip pain for a few years, pain with sitting, sleeping with pillows supine and sidelying. Following her emergency hysterectomy, has a lot of scarring, likely contributing to rib pain ( under breast L, scapula R, R posterior ribs); 8 years. Had 2nd surgery because became septic. 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 Has hx of foot pain and injuries, hand injuries. Pain in feet R>L. Pt has a hx of significant injuries from past trauma Treatment Goals Patient/Caregiver Goals pain reduction, stronger, sleep better, standing tolerance Current Functional Impairments (Reported) Functional Limitations- Mobility/Gait standing 30 minutes -fatigue ambulation - 1 mi/day - fatigue PT-OP-C Subjective Start: 02/09/24 16:09 Freq: Status: Active Protocol: Document 02/12/24 08:19 NM (Rec: 02/12/24 09:02 NM [id number]) OP-PT Subjective Patient Comments Patient Comments Pt reports uncomfortable at her hips, L>R. She reports did ok following evaluation. PT-OP-E Functional Tests Start: 02/09/24 16:09 Freq: Status: Active Protocol: Document 02/10/24 10:44 NM (Rec: 02/10/24 11:30 NM [id number]) Functional Tests 6 Minute Walk Test Distance 630 ft in 3 min Comments unable to complete d/t fatigue 30 Second Sit to Stand Test Score 9 PT-OP-F Manual Assessment Start: 02/09/24 16:09 Freq: Status: Active Protocol: Document 02/10/24 10:44 NM (Rec: 02/10/24 13:01 NM [id number]) Manual Assessments Soft Tissue Assessment Soft Tissue Mobility Assessment Tenderness and trigger points present over L TFL, glutes especially behind greater trochanter Tenderness along abdominal scar and intercostals, QL Joint Mobility Assessment Joint Mobility Assessment Hypermobility of R>L foot at midfoot, talocrural; hypomobile L talocrural and subtalar, R subtalar Hypomobility of lumbar spine with PA springing and ribs PT-OP-G Mobility & Gait Start: 02/09/24 16:09 Freq: Status: Active Protocol: Document 02/10/24 10:44 NM (Rec: 02/10/24 13:01 NM [id number]) OP Gait Assessment Gait Gait Assistance Required: Independent Distance (Feet) 150 Gait Deviations General Gait Pattern Antalgic,Flexed Trunk Comments Gait Comments Early heel off on L foot, antalgic with weight acceptance onto B feet, slight trunk lean with pain and with stance PT-OP-J Posture/Palpation/Skin Start: 02/09/24 16:09 Freq: Status: Active Protocol: Document 02/10/24 10:44 NM (Rec: 02/10/24 13:01 NM [id number]) Posture Evaluation Position Standing Head/C-Spine Posture Forward Head L-Spine Posture Increased Lordosis Shoulder Posture (L) Rounded,(R) Rounded Pelvis Posture Anteriorly Tilted Palpation Assessment Location trunk Palpation Details Mild tenderness along abdominal scar, decreased soft tissue mobility Tenderness along posterior lower ribs, L anterior- mid ribs hips Palpation Details R hip- not tender to palpation but tightness along TFL, glutes, and hip flexors L hip- tender and tight at TFL , hip flexors, glute tendons, hamstrings PT-OP-K Range of Motion Start: 02/09/24 16:09 Freq: Status: Active Protocol: Document 02/10/24 10:44 NM (Rec: 02/10/24 11:30 NM [id number]) Lumbar Spine Range of Motion Lumbar Spine Active Percentage Flexion 75 Extension 50 Rotation Left 100 Rotation Right 50 Lateral Flexion Left 75 Lateral Flexion Right 50 Ankle and Foot Goniometric Range of Motion Ankle and Foot Right Dorsiflexion with Knee Flexed 5 Plantarflexion 42 Left Dorsiflexion with Knee Flexed 0 Plantarflexion 35 PT-OP-M Strength Start: 02/09/24 16:09 Freq: Status: Active Protocol: Document 02/10/24 10:44 NM (Rec: 02/10/24 11:30 NM [id number]) Hip Strength Hip Manual Muscle Testing Right Flexion (L2) 4- Good- Left Flexion (L2) 3+ Fair+ Knee Strength Knee Manual Muscle Testing Right Flexion (S2) 4 Good Extension (L3) 4 Good Left Flexion (S2) 4 Good Extension (L3) 4 Good Ankle/Foot Strength Ankle and Foot Manual Muscle Testing Right Dorsiflexion (L4) 4 Good Plantarflexion (S1) 4 Good Left Dorsiflexion (L4) 4 Good Plantarflexion (S1) 4 Good PT-OP-Q Treatments Start: 02/09/24 16:09 Freq: Status: Active Protocol: Document 02/12/24 08:19 NM (Rec: 02/12/24 09:02 NM [id number]) Therapeutic Exercises Supine Exercises bridge Side bilateral Resistance level 1 band at thighs Reps/Minutes 15 Comments following glute isometric Sidelying Exercises hip abduction isometric Side left Resistance level 1 band at thighs Equipment Used pillow between legs Reps/Minutes 4x30 Comments pain free; for glute tendon management Sitting Exercises ankle dorsiflexion Side bilateral Resistance AROM > level 1 band Reps/Minutes 15 ea Comments pain free Standing Exercises heel raises Side bilateral Equipment Used hand support on counter Reps/Minutes 20 Comments pain free Manual Therapy Treatment Consent Patient gave verbal consent for manual Yes treatment Soft Tissue Mobilization B hips Body Location hip flexors, TFL, glutes Mobilization Type Rolling,Strumming,Sustained Pressure Intensity/Depth Superficial Body Position hooklying,sidelying Comments Positioned in sidelying with pillow between hips or hooklying with legs on bolster . scar mobilization Body Location abdominals, Mobilization Type Rolling,Strumming,Other Intensity/Depth Superficial Body Position Hooklying Comments Legs elevated on bolster for comfort. Educated on performing at home as part of HEP with lotion. Monitored for comfort Self-Care/Home Management Treatment Education Other Education Educated on not crossing legs, positioning in sitting and sleeping with pillow. Recommended sitting ergonomic 90/90 position with hips/knees or with hips slightly above knees. Educated on activity modification with hips to avoid exercise that exacerbates but to perform exercise/ambulation as tolerated PT-OP-T Assessment and Plan Start: 02/09/24 16:09 Freq: Status: Active Protocol: Document 02/12/24 08:19 NM (Rec: 02/12/24 09:02 NM [id number]) Physical Therapy Assessment Goals Three Impairment 30 sec STS = 9, below age & gender-related norms [facility] Goal (LTG) Pt will be able to perform at least 15 sit to stands in 30 seconds in order to demonstrate improved endurance and BLE strength LTG Duration 12 weeks Two Impairment standing tolerance limited to 30 min d/t fatigue Short Term Goal (STG) Pt will be educated on energy conservation strategies in order to improve ability to perform ADLs due to fatigue STG Duration 6 weeks [facility] Goal (LTG) Pt will report that she is able to stand >30 minutes to perform ADLs/IADLs without increase in fatigue at least 50% of the time LTG Duration 12 weeks One Impairment unable to complete 6 MWT 630 ft (3 min) Short Term Goal (STG) Pt will complete 6 MWT with pain <5/10 in B feet STG Duration 8 weeks Acquisitions Editor Goal (LTG) Pt will report that she is able to ambulate for exercise at least 2x/wk without increase in foot pain LTG Duration 12 weeks Assessment Summary Assessment Pt tolerated session well. Initiated global strengthening , emphasizing glutes and ankles today. Pt responds well to glute isometric for tendon pain management in sidelying. Educated on activity and postural modifications for pain management of her B glutes/hips. Pt unable to tolerate increased reps at this time due to decreased activity tolerance but able to tolerate low level resistance during ankle/glute exercises. Initiated scar mobilization at previous C section area and glutes for pain management and to improve global hip/ lumbopelvic mobility. Pt responds well. Educated on use at home with ball or self mobilization for soft tissue mobilization. Pt would continue to benefit from skilled PT for progressive strengthening and endurance training to improve symptoms management and activity tolerance. Physical Therapy Plan Frequency and Duration Frequency of Treatment 1-2/wk Duration of treatment (weeks) 12 Plan of Care Start Date 02/10/24 Plan of Care End Date 05/07/24 Therapeutic Interventions Therapeutic Interventions Balance Training,Gait Training ,Home Exercise Program,Joint Mobilizations,Manual Therapy, Neuromuscular Re-education, Orthotic/Prosthetic Management ,Patient/Caregiver Education, Self-Care/Home Management, Sensory Integration,Soft Tissue Mobilization,Taping, Therapeutic Activities, Therapeutic Exercises Modalities Cold Pack/Ice Massage,Electric Stimulation,Hot Packs, Ultrasound Other Referrals/Consults Referrals/Consults Recommended Recommend referral to OT for further hand & transit mix operator strength assessment and symptom management with fine motor ADLs Next Visit Focus/Plan Next Note Type Treatment Note Next Visit Plan 2 unit sessions, 24 units MAX Sessions and HEP w/ global strengthening- monitor for fatigue and symptoms of dizziness: glute med isometrics for glute tendinopathy mgmt in sidelying vs standing as tolerated (may progress to side stepping as able), heel raises, toe raises , seated hip abd, bridging > STS vs wall squat or minisquat . Needs foot intrinsic training, big toe mobilization , calf stretching Manual: scar mobilization on abdomen, possible rib STM and grade I-II mobilizations, pelvic realignment; STM to glutes/hips. Possible cupping or IASTM of scar mobility depending on tolerance
--- NOTE | 2024-02-24 08:08 | PT.OTN ---
Current Diagnoses Stiffness of right wrist, not elsewhere classified (02/24/24) Stiffness of left wrist, not elsewhere classified (02/24/24) Stiffness of right hip, not elsewhere classified (02/24/24) Stiffness of left hip, not elsewhere classified (02/24/24) Stiffness of right ankle, not elsewhere classified (02/24/24) Stiffness of left ankle, not elsewhere classified (02/24/24) Stiffness of right foot, not elsewhere classified (02/24/24) Stiffness of left foot, not elsewhere classified (02/24/24) Systemic lupus erythematosus, unspecified (02/24/24) Other lack of coordination (02/24/24) Weakness (02/24/24) Physical Therapy Treatment Note PT-OP-A Visit Information Start: 02/09/24 16:09 Freq: Status: Active Protocol: Document 02/24/24 07:31 SP (Rec: 02/24/24 08:17 SP [id number]) Out-Patient Physical Therapy Visit Information Visit Information Visit Type Treatment Note Visit Start Time 07:31 Visit Stop Time 08:08 Visit Number 2 units/ (visit 3 post eval) Number of NEEDLE SETTER Visits 1 Evaluation Information Evaluation Date 02/10/24 Precautions Precautions feels like shaky, dizzy/ lightheaded when too fatigued RA and lupus, sjogren's PT-OP-B Current Condition Start: 02/09/24 16:09 Freq: Status: Active Protocol: Document 02/10/24 10:44 NM (Rec: 02/10/24 11:30 NM [id number]) Current Condition History of Current Condition Onset Date chronic History of Current Condition Pt reports a significant amount of injuries. Pt reports pain in her hands, feet, hips , ribs. Has RA and lupus. Pt was diagnosed as a teen. Currently not on any medication for lupus or RA at this time. Pt moved from [place] to [place] in 2020. Pt was on metrotrexate and prednisone. Pt reports impairments with sleeping due to L hip (also R), ADLs/IADLs due to fatigue and weakness, gripping (dropping objects). Hx of hairline fracture L hip. Pt reports that she had had hip pain for a few years, pain with sitting, sleeping with pillows supine and sidelying. Following her emergency hysterectomy, has a lot of scarring, likely contributing to rib pain ( under breast L, scapula R, R posterior ribs); 8 years. Had 2nd surgery because became septic. 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 Has hx of foot pain and injuries, hand injuries. Pain in feet R>L. Pt has a hx of significant injuries from past trauma Treatment Goals Patient/Caregiver Goals pain reduction, stronger, sleep better, standing tolerance Current Functional Impairments (Reported) Functional Limitations- Mobility/Gait standing 30 minutes -fatigue ambulation - 1 mi/day - fatigue PT-OP-C Subjective Start: 02/09/24 16:09 Freq: Status: Active Protocol: Document 02/24/24 07:31 SP (Rec: 02/24/24 08:17 SP [id number]) OP-PT Subjective Patient Comments Patient Comments Pt reports doing well with HEP . Would like to get more feeling back in abdominal scar region. PT-OP-E Functional Tests Start: 02/09/24 16:09 Freq: Status: Active Protocol: Document 02/10/24 10:44 NM (Rec: 02/10/24 11:30 NM [id number]) Functional Tests 6 Minute Walk Test Distance 630 ft in 3 min Comments unable to complete d/t fatigue 30 Second Sit to Stand Test Score 9 PT-OP-F Manual Assessment Start: 02/09/24 16:09 Freq: Status: Active Protocol: Document 02/10/24 10:44 NM (Rec: 02/10/24 13:01 NM [id number]) Manual Assessments Soft Tissue Assessment Soft Tissue Mobility Assessment Tenderness and trigger points present over L TFL, glutes especially behind greater trochanter Tenderness along abdominal scar and intercostals, QL Joint Mobility Assessment Joint Mobility Assessment Hypermobility of R>L foot at midfoot, talocrural; hypomobile L talocrural and subtalar, R subtalar Hypomobility of lumbar spine with PA springing and ribs PT-OP-G Mobility & Gait Start: 02/09/24 16:09 Freq: Status: Active Protocol: Document 02/10/24 10:44 NM (Rec: 02/10/24 13:01 NM [id number]) OP Gait Assessment Gait Gait Assistance Required: Independent Distance (Feet) 150 Gait Deviations General Gait Pattern Antalgic,Flexed Trunk Comments Gait Comments Early heel off on L foot, antalgic with weight acceptance onto B feet, slight trunk lean with pain and with stance PT-OP-J Posture/Palpation/Skin Start: 02/09/24 16:09 Freq: Status: Active Protocol: Document 02/10/24 10:44 NM (Rec: 02/10/24 13:01 NM [id number]) Posture Evaluation Position Standing Head/C-Spine Posture Forward Head L-Spine Posture Increased Lordosis Shoulder Posture (L) Rounded,(R) Rounded Pelvis Posture Anteriorly Tilted Palpation Assessment Location trunk Palpation Details Mild tenderness along abdominal scar, decreased soft tissue mobility Tenderness along posterior lower ribs, L anterior- mid ribs hips Palpation Details R hip- not tender to palpation but tightness along TFL, glutes, and hip flexors L hip- tender and tight at TFL , hip flexors, glute tendons, hamstrings PT-OP-K Range of Motion Start: 02/09/24 16:09 Freq: Status: Active Protocol: Document 02/10/24 10:44 NM (Rec: 02/10/24 11:30 NM [id number]) Lumbar Spine Range of Motion Lumbar Spine Active Percentage Flexion 75 Extension 50 Rotation Left 100 Rotation Right 50 Lateral Flexion Left 75 Lateral Flexion Right 50 Ankle and Foot Goniometric Range of Motion Ankle and Foot Right Dorsiflexion with Knee Flexed 5 Plantarflexion 42 Left Dorsiflexion with Knee Flexed 0 Plantarflexion 35 PT-OP-M Strength Start: 02/09/24 16:09 Freq: Status: Active Protocol: Document 02/10/24 10:44 NM (Rec: 02/10/24 11:30 NM [id number]) Hip Strength Hip Manual Muscle Testing Right Flexion (L2) 4- Good- Left Flexion (L2) 3+ Fair+ Knee Strength Knee Manual Muscle Testing Right Flexion (S2) 4 Good Extension (L3) 4 Good Left Flexion (S2) 4 Good Extension (L3) 4 Good Ankle/Foot Strength Ankle and Foot Manual Muscle Testing Right Dorsiflexion (L4) 4 Good Plantarflexion (S1) 4 Good Left Dorsiflexion (L4) 4 Good Plantarflexion (S1) 4 Good PT-OP-Q Treatments Start: 02/09/24 16:09 Freq: Status: Active Protocol: Document 02/24/24 07:31 SP (Rec: 02/24/24 08:17 SP [id number]) Therapeutic Exercises Supine Exercises bridge Supine Exercise Name reviewed HEP Side bilateral Resistance level 1 band at thighs Reps/Minutes 15, 5 SH Comments following glute isometric Sidelying Exercises hip abduction isometric Side left Resistance level 1 band at thighs Equipment Used pillow between legs Reps/Minutes 4x30 Comments pain free; for glute tendon management Standing Exercises wall squat Standing Exercise Name added to HEP (declined HO) Equipment Used back to wall, feet front Reps/Minutes 30 SH x2 Comments cued light TA and glut fac support not over tiring quads heel raises Side bilateral Equipment Used hand support on counter Reps/Minutes 20 Comments pain free Other Exercises self massage Other Exercise Name added to HEP- declined HO Comments glut, piriformis, ES- cued light massage not over bony areas- good response Manual Therapy Treatment Consent Patient gave verbal consent for manual Yes treatment Soft Tissue Mobilization B hips Body Location hip flexors, TFL, glutes Mobilization Type Rolling,Strumming,Sustained Pressure Intensity/Depth Superficial Body Position hooklying,sidelying Comments Positioned in sidelying with pillow between hips or hooklying with legs on bolster . MWM hip IR/ER clamshell. Ed self use ball wall. scar mobilization Body Location abdominals, Mobilization Type Instrument Assisted,Myofascial Release,Other Intensity/Depth Superficial Body Position Hooklying Comments Legs elevated on bolster for comfort. Educated on performing at home as part of HEP with lotion. Monitored for comfort utilized cupping today them MFR. PT-OP-T Assessment and Plan Start: 02/09/24 16:09 Freq: Status: Active Protocol: Document 02/24/24 07:31 SP (Rec: 02/24/24 08:17 SP [id number]) Physical Therapy Assessment Goals Three Impairment 30 sec STS = 9, below age & gender-related norms Artificial Fly Tier Goal (LTG) Pt will be able to perform at least 15 sit to stands in 30 seconds in order to demonstrate improved endurance and BLE strength LTG Duration 12 weeks Two Impairment standing tolerance limited to 30 min d/t fatigue Short Term Goal (STG) Pt will be educated on energy conservation strategies in order to improve ability to perform ADLs due to fatigue STG Duration 6 weeks Long-Term Goal (LTG) Pt will report that she is able to stand >30 minutes to perform ADLs/IADLs without increase in fatigue at least 50% of the time LTG Duration 12 weeks One Impairment unable to complete 6 MWT 630 ft (3 min) Short Term Goal (STG) Pt will complete 6 MWT with pain <5/10 in B feet STG Duration 8 weeks Artificial Fly Tier Goal (LTG) Pt will report that she is able to ambulate for exercise at least 2x/wk without increase in foot pain LTG Duration 12 weeks Assessment Summary Assessment Pt tolerated session well, good form with ther ex worked on continued hip strengthening and manual for self carryover support home decreased soreness with ther ex. Cues for tolerant range, reports muscle tiring no pain with resistance. Progressed standing LE strength with no adverse affects durign wall sits. Pt declined HO wall sit and self massage. Physical Therapy Plan Frequency and Duration Frequency of Treatment 1-2/wk Duration of treatment (weeks) 12 Plan of Care Start Date 02/10/24 Plan of Care End Date 05/07/24 Therapeutic Interventions Therapeutic Interventions Balance Training,Gait Training ,Home Exercise Program,Joint Mobilizations,Manual Therapy, Neuromuscular Re-education, Orthotic/Prosthetic Management ,Patient/Caregiver Education, Self-Care/Home Management, Sensory Integration,Soft Tissue Mobilization,Taping, Therapeutic Activities, Therapeutic Exercises Modalities Cold Pack/Ice Massage,Electric Stimulation,Hot Packs, Ultrasound Other Referrals/Consults Referrals/Consults Recommended Recommend referral to OT for further hand & news videotape editor strength assessment and symptom management with fine motor ADLs Next Visit Focus/Plan Next Note Type Treatment Note Next Visit Plan 2 unit sessions, 24 units MAX Sessions and HEP w/ global strengthening- monitor for fatigue and symptoms of dizziness: glute med isometrics for glute tendinopathy mgmt in sidelying vs standing as tolerated (may progress to side stepping as able), heel raises, toe raises , seated hip abd, bridging > STS vs wall squat or minisquat . Needs foot intrinsic training, big toe mobilization , calf stretching Manual: scar mobilization on abdomen, possible rib STM and grade I-II mobilizations, pelvic realignment; STM to glutes/hips. Possible cupping or IASTM of scar mobility depending on tolerance
--- NOTE | 2024-02-27 07:32 | PT-OP ANOTE ---
Addendum entered and electronically signed by Alina Pan, RESPIRATORY THERAPIST 02/27/24 07:33: Next appt 03/03, ask if out of town til 03/15 or if want to add more appt between visit, 2 unit visits, total 24 allowed per calendar year. Original Note: Pt called early this am, very sick unable to attend appt.
--- NOTE | 2024-03-03 09:47 | PT.OTN ---
Current Diagnoses Stiffness of right wrist, not elsewhere classified (03/03/24) Stiffness of left wrist, not elsewhere classified (03/03/24) Stiffness of right hip, not elsewhere classified (03/03/24) Stiffness of left hip, not elsewhere classified (03/03/24) Stiffness of right ankle, not elsewhere classified (03/03/24) Stiffness of left ankle, not elsewhere classified (03/03/24) Stiffness of right foot, not elsewhere classified (03/03/24) Stiffness of left foot, not elsewhere classified (03/03/24) Systemic lupus erythematosus, unspecified (03/03/24) Other lack of coordination (03/03/24) Weakness (03/03/24) Physical Therapy Treatment Note PT-OP-A Visit Information Start: 02/09/24 16:09 Freq: Status: Active Protocol: Document 03/03/24 09:10 SP (Rec: 03/03/24 09:50 SP [id number]) Out-Patient Physical Therapy Visit Information Visit Information Visit Type Treatment Note Visit Start Time 09:10 Visit Stop Time 09:47 Visit Number 2 units/ (visit 4 post eval) Number of MODELING AND SIMULATION ANALYST Visits 2 Evaluation Information Evaluation Date 02/10/24 Precautions Precautions feels like shaky, dizzy/ lightheaded when too fatigued RA and lupus, sjogren's PT-OP-B Current Condition Start: 02/09/24 16:09 Freq: Status: Active Protocol: Document 02/10/24 10:44 NM (Rec: 02/10/24 11:30 NM [id number]) Current Condition History of Current Condition Onset Date chronic History of Current Condition Pt reports a significant amount of injuries. Pt reports pain in her hands, feet, hips , ribs. Has RA and lupus. Pt was diagnosed as a teen. Currently not on any medication for lupus or RA at this time. Pt moved from [place] to [place] in 2020. Pt was on metrotrexate and prednisone. Pt reports impairments with sleeping due to L hip (also R), ADLs/IADLs due to fatigue and weakness, gripping (dropping objects). Hx of hairline fracture L hip. Pt reports that she had had hip pain for a few years, pain with sitting, sleeping with pillows supine and sidelying. Following her emergency hysterectomy, has a lot of scarring, likely contributing to rib pain ( under breast L, scapula R, R posterior ribs); 8 years. Had 2nd surgery because became septic. 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 Has hx of foot pain and injuries, hand injuries. Pain in feet R>L. Pt has a hx of significant injuries from past trauma Treatment Goals Patient/Caregiver Goals pain reduction, stronger, sleep better, standing tolerance Current Functional Impairments (Reported) Functional Limitations- Mobility/Gait standing 30 minutes -fatigue ambulation - 1 mi/day - fatigue PT-OP-C Subjective Start: 02/09/24 16:09 Freq: Status: Active Protocol: Document 03/03/24 09:10 SP (Rec: 03/03/24 09:50 SP [id number]) OP-PT Subjective Patient Comments Patient Comments Pt report little good soreness after last tx but later in day started have stomach issues and positive emesis probably unrelated. Since last tx she had 2 instances with her R hand go cold and numb while L hand red/ warm and little swelling so made and has dr patel Mar but might portal message physician for awareness. Had hard time opening a ziplock bag the other day, had to help her. Pt stated would like to eventually like to do women's health PT knowing at times has urine leakage and very weak with past bed rest with multiple pregnancies. PT-OP-E Functional Tests Start: 02/09/24 16:09 Freq: Status: Active Protocol: Document 02/10/24 10:44 NM (Rec: 02/10/24 11:30 NM [id number]) Functional Tests 6 Minute Walk Test Distance 630 ft in 3 min Comments unable to complete d/t fatigue 30 Second Sit to Stand Test Score 9 PT-OP-F Manual Assessment Start: 02/09/24 16:09 Freq: Status: Active Protocol: Document 02/10/24 10:44 NM (Rec: 02/10/24 13:01 NM [id number]) Manual Assessments Soft Tissue Assessment Soft Tissue Mobility Assessment Tenderness and trigger points present over L TFL, glutes especially behind greater trochanter Tenderness along abdominal scar and intercostals, QL Joint Mobility Assessment Joint Mobility Assessment Hypermobility of R>L foot at midfoot, talocrural; hypomobile L talocrural and subtalar, R subtalar Hypomobility of lumbar spine with PA springing and ribs PT-OP-G Mobility & Gait Start: 02/09/24 16:09 Freq: Status: Active Protocol: Document 02/10/24 10:44 NM (Rec: 02/10/24 13:01 NM [id number]) OP Gait Assessment Gait Gait Assistance Required: Independent Distance (Feet) 150 Gait Deviations General Gait Pattern Antalgic,Flexed Trunk Comments Gait Comments Early heel off on L foot, antalgic with weight acceptance onto B feet, slight trunk lean with pain and with stance PT-OP-J Posture/Palpation/Skin Start: 02/09/24 16:09 Freq: Status: Active Protocol: Document 02/10/24 10:44 NM (Rec: 02/10/24 13:01 NM [id number]) Posture Evaluation Position Standing Head/C-Spine Posture Forward Head L-Spine Posture Increased Lordosis Shoulder Posture (L) Rounded,(R) Rounded Pelvis Posture Anteriorly Tilted Palpation Assessment Location trunk Palpation Details Mild tenderness along abdominal scar, decreased soft tissue mobility Tenderness along posterior lower ribs, L anterior- mid ribs hips Palpation Details R hip- not tender to palpation but tightness along TFL, glutes, and hip flexors L hip- tender and tight at TFL , hip flexors, glute tendons, hamstrings PT-OP-K Range of Motion Start: 02/09/24 16:09 Freq: Status: Active Protocol: Document 02/10/24 10:44 NM (Rec: 02/10/24 11:30 NM [id number]) Lumbar Spine Range of Motion Lumbar Spine Active Percentage Flexion 75 Extension 50 Rotation Left 100 Rotation Right 50 Lateral Flexion Left 75 Lateral Flexion Right 50 Ankle and Foot Goniometric Range of Motion Ankle and Foot Right Dorsiflexion with Knee Flexed 5 Plantarflexion 42 Left Dorsiflexion with Knee Flexed 0 Plantarflexion 35 PT-OP-M Strength Start: 02/09/24 16:09 Freq: Status: Active Protocol: Document 02/10/24 10:44 NM (Rec: 02/10/24 11:30 NM [id number]) Hip Strength Hip Manual Muscle Testing Right Flexion (L2) 4- Good- Left Flexion (L2) 3+ Fair+ Knee Strength Knee Manual Muscle Testing Right Flexion (S2) 4 Good Extension (L3) 4 Good Left Flexion (S2) 4 Good Extension (L3) 4 Good Ankle/Foot Strength Ankle and Foot Manual Muscle Testing Right Dorsiflexion (L4) 4 Good Plantarflexion (S1) 4 Good Left Dorsiflexion (L4) 4 Good Plantarflexion (S1) 4 Good PT-OP-Q Treatments Start: 02/09/24 16:09 Freq: Status: Active Protocol: Document 03/03/24 09:10 SP (Rec: 03/03/24 09:50 SP [id number]) Therapeutic Exercises Supine Exercises [place] hold and quick flicks Supine Exercise Name 1. draw in holds 2. quick flicks (discussed, not provide HO) Resistance (next add adduction ball between knees) Reps/Minutes 1. 5-10 SH x5 reps 2. 2 SH 5 sec rest x5-10 reps Comments cued pelvic floor draw in TA trng Supine Exercise Name 1. draw in 2. KFO 3. LTR /c HO Reps/Minutes 1. draw in hold 2-3. x10 each Comments cued pelvis on table 1. hand on belly 2-3 hands side pelvis on table bridge Supine Exercise Name reviewed HEP Side bilateral Resistance level 1 band at thighs Reps/Minutes 15, 5 SH Comments tail bone lift then pelvis up, glute isometric- segmental lower Standing Exercises wall squat Standing Exercise Name reviewed /c HO Resistance TB #1 at thighs Equipment Used back to wall, feet front Reps/Minutes 30 SH x2 Comments cued light TA and glut fac support not over tiring quads Manual Therapy Treatment Consent Patient gave verbal consent for manual Yes treatment Soft Tissue Mobilization back Body Location QL Body Position SL Comments STMs, MWM ilium elevation/ depression, then PNF pelvis anterior elevation L weaker than R B hips Body Location hip flexors, TFL, glutes Mobilization Type Rolling,Strumming,Sustained Pressure Intensity/Depth Superficial Body Position hooklying,sidelying Comments Positioned in sidelying with pillow between legs, STMs MWM hip IR/ER clamshell. PT-OP-T Assessment and Plan Start: 02/09/24 16:09 Freq: Status: Active Protocol: Document 03/03/24 09:10 SP (Rec: 03/03/24 09:50 SP [id number]) Physical Therapy Assessment Goals Three Impairment 30 sec STS = 9, below age & gender-related norms Residential Goal (LTG) Pt will be able to perform at least 15 sit to stands in 30 seconds in order to demonstrate improved endurance and BLE strength LTG Duration 12 weeks Two Impairment standing tolerance limited to 30 min d/t fatigue Short Term Goal (STG) Pt will be educated on energy conservation strategies in order to improve ability to perform ADLs due to fatigue STG Duration 6 weeks Open Pit Quarry Supervisor Goal (LTG) Pt will report that she is able to stand >30 minutes to perform ADLs/IADLs without increase in fatigue at least 50% of the time LTG Duration 12 weeks One Impairment unable to complete 6 MWT 630 ft (3 min) Short Term Goal (STG) Pt will complete 6 MWT with pain <5/10 in B feet STG Duration 8 weeks Residential Goal (LTG) Pt will report that she is able to ambulate for exercise at least 2x/wk without increase in foot pain LTG Duration 12 weeks Assessment Summary Assessment MODELING AND SIMULATION ANALYST recommended to patient portal message physician of new change in temp hands and supervisor machining strength opening zip lock bag, knowing next appt not til end Mar. Pt improved core engagement Physical Therapy Plan Frequency and Duration Frequency of Treatment 1-2/wk Duration of treatment (weeks) 12 Plan of Care Start Date 02/10/24 Plan of Care End Date 05/07/24 Therapeutic Interventions Therapeutic Interventions Balance Training,Gait Training ,Home Exercise Program,Joint Mobilizations,Manual Therapy, Neuromuscular Re-education, Orthotic/Prosthetic Management ,Patient/Caregiver Education, Self-Care/Home Management, Sensory Integration,Soft Tissue Mobilization,Taping, Therapeutic Activities, Therapeutic Exercises Modalities Cold Pack/Ice Massage,Electric Stimulation,Hot Packs, Ultrasound Other Referrals/Consults Referrals/Consults Recommended Recommend referral to OT for further hand & supervisor machining strength assessment and symptom management with fine motor ADLs Next Visit Focus/Plan Next Note Type Treatment Note Next Visit Plan 2 unit sessions, 24 units MAX Next: recheck Ta trng added LE mobility, segmental briding, resisted wall sit. Progress as directed. POC: Sessions and HEP w/ global strengthening- monitor for fatigue and symptoms of dizziness: glute med isometrics for glute tendinopathy mgmt in sidelying vs standing as tolerated (may progress to side stepping as able), heel raises, toe raises , seated hip abd, bridging > STS vs wall squat or minisquat . Needs foot intrinsic training, big toe mobilization , calf stretching Manual: scar mobilization on abdomen, possible rib STM and grade I-II mobilizations, pelvic realignment; STM to glutes/hips. Possible cupping or IASTM of scar mobility depending on tolerance
--- NOTE | 2024-03-15 12:59 | PT.OTN ---
Current Diagnoses Stiffness of right wrist, not elsewhere classified (03/15/24) Stiffness of left wrist, not elsewhere classified (03/15/24) Stiffness of right hip, not elsewhere classified (03/15/24) Stiffness of left hip, not elsewhere classified (03/15/24) Stiffness of right ankle, not elsewhere classified (03/15/24) Stiffness of left ankle, not elsewhere classified (03/15/24) Stiffness of right foot, not elsewhere classified (03/15/24) Stiffness of left foot, not elsewhere classified (03/15/24) Systemic lupus erythematosus, unspecified (03/15/24) Other lack of coordination (03/15/24) Weakness (03/15/24) Physical Therapy Treatment Note PT-OP-A Visit Information Start: 02/09/24 16:09 Freq: Status: Active Protocol: Document 03/15/24 09:11 NM (Rec: 03/15/24 09:44 NM [id number]) Out-Patient Physical Therapy Visit Information Visit Information Visit Type Progress Note Visit Start Time 09:03 Visit Stop Time 09:39 Visit Number 06/17 (visit 5 post eval) Evaluation Information Evaluation Date 02/10/24 Precautions Precautions feels like shaky, dizzy/ lightheaded when too fatigued RA and lupus, sjogren's PT-OP-B Current Condition Start: 02/09/24 16:09 Freq: Status: Active Protocol: Document 02/10/24 10:44 NM (Rec: 02/10/24 11:30 NM [id number]) Current Condition History of Current Condition Onset Date chronic History of Current Condition Pt reports a significant amount of injuries. Pt reports pain in her hands, feet, hips , ribs. Has RA and lupus. Pt was diagnosed as a teen. Currently not on any medication for lupus or RA at this time. Pt moved from [place] to [place] in 2020. Pt was on metrotrexate and prednisone. Pt reports impairments with sleeping due to L hip (also R), ADLs/IADLs due to fatigue and weakness, gripping (dropping objects). Hx of hairline fracture L hip. Pt reports that she had had hip pain for a few years, pain with sitting, sleeping with pillows supine and sidelying. Following her emergency hysterectomy, has a lot of scarring, likely contributing to rib pain ( under breast L, scapula R, R posterior ribs); 8 years. Had 2nd surgery because became septic. 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 Has hx of foot pain and injuries, hand injuries. Pain in feet R>L. Pt has a hx of significant injuries from past trauma Treatment Goals Patient/Caregiver Goals pain reduction, stronger, sleep better, standing tolerance Current Functional Impairments (Reported) Functional Limitations- Mobility/Gait standing 30 minutes -fatigue ambulation - 1 mi/day - fatigue PT-OP-C Subjective Start: 02/09/24 16:09 Freq: Status: Active Protocol: Document 03/15/24 09:11 NM (Rec: 03/15/24 09:44 NM [id number]) OP-PT Subjective Patient Comments Patient Comments Pt reports had a flare up just before last session. States mostly resolved now. [place] good after last session, a little sore but overall doing well. Compliant with HEP. Pt continues to report random instances of numbness in RUE cold/numb, LUE hot/swell when sitting. PT-OP-E Functional Tests Start: 02/09/24 16:09 Freq: Status: Active Protocol: Document 02/10/24 10:44 NM (Rec: 02/10/24 11:30 NM [id number]) Functional Tests 6 Minute Walk Test Distance 630 ft in 3 min Comments unable to complete d/t fatigue 30 Second Sit to Stand Test Score 9 PT-OP-F Manual Assessment Start: 02/09/24 16:09 Freq: Status: Active Protocol: Document 02/10/24 10:44 NM (Rec: 02/10/24 13:01 NM [id number]) Manual Assessments Soft Tissue Assessment Soft Tissue Mobility Assessment Tenderness and trigger points present over L TFL, glutes especially behind greater trochanter Tenderness along abdominal scar and intercostals, QL Joint Mobility Assessment Joint Mobility Assessment Hypermobility of R>L foot at midfoot, talocrural; hypomobile L talocrural and subtalar, R subtalar Hypomobility of lumbar spine with PA springing and ribs PT-OP-G Mobility & Gait Start: 02/09/24 16:09 Freq: Status: Active Protocol: Document 02/10/24 10:44 NM (Rec: 02/10/24 13:01 NM [id number]) OP Gait Assessment Gait Gait Assistance Required: Independent Distance (Feet) 150 Gait Deviations General Gait Pattern Antalgic,Flexed Trunk Comments Gait Comments Early heel off on L foot, antalgic with weight acceptance onto B feet, slight trunk lean with pain and with stance PT-OP-J Posture/Palpation/Skin Start: 02/09/24 16:09 Freq: Status: Active Protocol: Document 02/10/24 10:44 NM (Rec: 02/10/24 13:01 NM [id number]) Posture Evaluation Position Standing Head/C-Spine Posture Forward Head L-Spine Posture Increased Lordosis Shoulder Posture (L) Rounded,(R) Rounded Pelvis Posture Anteriorly Tilted Palpation Assessment Location trunk Palpation Details Mild tenderness along abdominal scar, decreased soft tissue mobility Tenderness along posterior lower ribs, L anterior- mid ribs hips Palpation Details R hip- not tender to palpation but tightness along TFL, glutes, and hip flexors L hip- tender and tight at TFL , hip flexors, glute tendons, hamstrings PT-OP-K Range of Motion Start: 02/09/24 16:09 Freq: Status: Active Protocol: Document 02/10/24 10:44 NM (Rec: 02/10/24 11:30 NM [id number]) Lumbar Spine Range of Motion Lumbar Spine Active Percentage Flexion 75 Extension 50 Rotation Left 100 Rotation Right 50 Lateral Flexion Left 75 Lateral Flexion Right 50 Ankle and Foot Goniometric Range of Motion Ankle and Foot Right Dorsiflexion with Knee Flexed 5 Plantarflexion 42 Left Dorsiflexion with Knee Flexed 0 Plantarflexion 35 PT-OP-M Strength Start: 02/09/24 16:09 Freq: Status: Active Protocol: Document 02/10/24 10:44 NM (Rec: 02/10/24 11:30 NM [id number]) Hip Strength Hip Manual Muscle Testing Right Flexion (L2) 4- Good- Left Flexion (L2) 3+ Fair+ Knee Strength Knee Manual Muscle Testing Right Flexion (S2) 4 Good Extension (L3) 4 Good Left Flexion (S2) 4 Good Extension (L3) 4 Good Ankle/Foot Strength Ankle and Foot Manual Muscle Testing Right Dorsiflexion (L4) 4 Good Plantarflexion (S1) 4 Good Left Dorsiflexion (L4) 4 Good Plantarflexion (S1) 4 Good PT-OP-Q Treatments Start: 02/09/24 16:09 Freq: Status: Active Protocol: Document 03/15/24 09:11 NM (Rec: 03/15/24 09:44 NM [id number]) Therapeutic Exercises Sitting Exercises foot intrinsics Sitting Exercise Name 1. arch raise, 2. marble fruit picker machine operator [employer]/ev, 3. towel scrunch, 4 . 1st toe mob Side bilateral Equipment Used 4. leg crossed over figure 4 Reps/Minutes 10 ea Comments R more challenging; 1, 3, 4 added HEP Standing Exercises hip 3 way Side bilateral Equipment Used 1 hand support Reps/Minutes 10 ea Comments increased time needed Other Exercises self massage Other Exercise Name education use for scapula, periscapulars Comments did not perform in session Therapeutic Activity Therapeutic Activity 6 MWT Name 6 min total time Reps/Minutes 1279 ft Comments No standing rest breaks Energy Conservation Reps/Minutes 10 min Comments Education and hand out provided on breathing techniques and energy conservation during ADLs PT-OP-T Assessment and Plan Start: 02/09/24 16:09 Freq: Status: Active Protocol: Document 03/15/24 09:11 NM (Rec: 03/15/24 09:44 NM [id number]) Physical Therapy Assessment Goals Three Impairment 30 sec STS = 9, below age & gender-related norms Cement Truck Loader Goal (LTG) Pt will be able to perform at least 15 sit to stands in 30 seconds in order to demonstrate improved endurance and BLE strength 03/15/24: unable to assess same session due to fatigue following 6 MWT LTG Duration 12 weeks Two Impairment standing tolerance limited to 30 min d/t fatigue Short Term Goal (STG) Pt will be educated on energy conservation strategies in order to improve ability to perform ADLs due to fatigue 03/15/24: hand out issued STG Duration 6 weeks MET Cement Truck Loader Goal (LTG) Pt will report that she is able to stand >30 minutes to perform ADLs/IADLs without increase in fatigue at least 50% of the time 03/15/24: pt reports can stand for 30 min before needing to take a break; however, reports that less tired at least 50% of the time LTG Duration 12 weeks PROGRESSING One Impairment unable to complete 6 MWT 630 ft (3 min) Short Term Goal (STG) Pt will complete 6 MWT with pain <5/10 in B feet 03/15/24: 1279 ft w/o pain in feet STG Duration 8 weeks MET Half-Way Goal (LTG) Pt will report that she is able to ambulate for exercise at least 2x/wk without increase in foot pain 03/15/24: initiated ambulation program 2x/wk LTG Duration 12 weeks Progress Towards Goals Progress Towards Goals Progressing Toward Goals,Slow Progress due to Activity Tolerance,Slow Progress due to Medical Issues Assessment Summary Assessment Pt has increased fatigue following 6 MWT but able to complete today; unable to complete during evaluation. Below age-related norms, but reports no foot pain today during ambulation. Issued ambulation program 1-2x/wk for tolerance. Trialed and initiated foot intrinsic exercises to support arch during gait and standing tolerance; RLE more challenging to perform all exercises than LLE. Progressed to standing hip strengthening without resistance to improve activity tolerance and for stability of lumbar spine and hips during gait. Education provided on energy conservation and breathing techniques. Physical Therapy Plan Frequency and Duration Frequency of Treatment 1-2/wk Duration of treatment (weeks) 12 Plan of Care Start Date 02/10/24 Plan of Care End Date 05/07/24 Therapeutic Interventions Therapeutic Interventions Balance Training,Gait Training ,Home Exercise Program,Joint Mobilizations,Manual Therapy, Neuromuscular Re-education, Orthotic/Prosthetic Management ,Patient/Caregiver Education, Self-Care/Home Management, Sensory Integration,Soft Tissue Mobilization,Taping, Therapeutic Activities, Therapeutic Exercises Modalities Cold Pack/Ice Massage,Electric Stimulation,Hot Packs, Ultrasound Other Referrals/Consults Referrals/Consults Recommended Recommend referral to OT for further hand & litigation claim representative strength assessment and symptom management with fine motor ADLs Next Visit Focus/Plan Next Note Type Treatment Note Next Visit Plan 2 unit sessions, 24 units MAX Retrial Ta trng added LE mobility, segmental bridging, ivett for hip 3 way. Check for 30 sec STS. Global strengthening and core bracing . Progress as directed. POC: Sessions and HEP w/ global strengthening- monitor for fatigue and dizziness Manual: scar mobilization on abdomen, possible rib STM and grade I-II mobilizations, pelvic realignment; STM to glutes/hips. Possible cupping or IASTM of scar mobility depending on tolerance
--- NOTE | 2024-03-26 11:01 | PT.OTN ---
Current Diagnoses Stiffness of right wrist, not elsewhere classified (03/26/24) Stiffness of left wrist, not elsewhere classified (03/26/24) Stiffness of right hip, not elsewhere classified (03/26/24) Stiffness of left hip, not elsewhere classified (03/26/24) Stiffness of right ankle, not elsewhere classified (03/26/24) Stiffness of left ankle, not elsewhere classified (03/26/24) Stiffness of right foot, not elsewhere classified (03/26/24) Stiffness of left foot, not elsewhere classified (03/26/24) Systemic lupus erythematosus, unspecified (03/26/24) Other lack of coordination (03/26/24) Weakness (03/26/24) Physical Therapy Treatment Note PT-OP-A Visit Information Start: 02/09/24 16:09 Freq: Status: Active Protocol: Document 03/26/24 08:19 NM (Rec: 03/26/24 09:03 NM [id number]) Out-Patient Physical Therapy Visit Information Visit Information Visit Type Treatment Note Visit Start Time 08:20 Visit Stop Time 08:57 Visit Number 08/17 units (visit 6 post eval) Evaluation Information Evaluation Date 02/10/24 Precautions Precautions feels like shaky, dizzy/ lightheaded when too fatigued RA and lupus, sjogren's PT-OP-B Current Condition Start: 02/09/24 16:09 Freq: Status: Active Protocol: Document 02/10/24 10:44 NM (Rec: 02/10/24 11:30 NM [id number]) Current Condition History of Current Condition Onset Date chronic History of Current Condition Pt reports a significant amount of injuries. Pt reports pain in her hands, feet, hips , ribs. Has RA and lupus. Pt was diagnosed as a teen. Currently not on any medication for lupus or RA at this time. Pt moved from [place] to [place] in 2020. Pt was on metrotrexate and prednisone. Pt reports impairments with sleeping due to L hip (also R), ADLs/IADLs due to fatigue and weakness, gripping (dropping objects). Hx of hairline fracture L hip. Pt reports that she had had hip pain for a few years, pain with sitting, sleeping with pillows supine and sidelying. Following her emergency hysterectomy, has a lot of scarring, likely contributing to rib pain ( under breast L, scapula R, R posterior ribs); 8 years. Had 2nd surgery because became septic. 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 Has hx of foot pain and injuries, hand injuries. Pain in feet R>L. Pt has a hx of significant injuries from past trauma Treatment Goals Patient/Caregiver Goals pain reduction, stronger, sleep better, standing tolerance Current Functional Impairments (Reported) Functional Limitations- Mobility/Gait standing 30 minutes -fatigue ambulation - 1 mi/day - fatigue PT-OP-C Subjective Start: 02/09/24 16:09 Freq: Status: Active Protocol: Document 03/26/24 08:19 NM (Rec: 03/26/24 09:03 NM [id number]) OP-PT Subjective Patient Comments Patient Comments Pt reports no changes since last session with numbness, some days better than others. Did not sleep well due to her hips hurting a lot, mainly at SIJ. Toes are bother her today which happens when cold. Exercises are going well when she does them but reports that sometimes unable to perform due to pain or exhaustion. PT-OP-E Functional Tests Start: 02/09/24 16:09 Freq: Status: Active Protocol: Document 02/10/24 10:44 NM (Rec: 02/10/24 11:30 NM [id number]) Functional Tests 6 Minute Walk Test Distance 630 ft in 3 min Comments unable to complete d/t fatigue 30 Second Sit to Stand Test Score 9 PT-OP-F Manual Assessment Start: 02/09/24 16:09 Freq: Status: Active Protocol: Document 02/10/24 10:44 NM (Rec: 02/10/24 13:01 NM [id number]) Manual Assessments Soft Tissue Assessment Soft Tissue Mobility Assessment Tenderness and trigger points present over L TFL, glutes especially behind greater trochanter Tenderness along abdominal scar and intercostals, QL Joint Mobility Assessment Joint Mobility Assessment Hypermobility of R>L foot at midfoot, talocrural; hypomobile L talocrural and subtalar, R subtalar Hypomobility of lumbar spine with PA springing and ribs PT-OP-G Mobility & Gait Start: 02/09/24 16:09 Freq: Status: Active Protocol: Document 02/10/24 10:44 NM (Rec: 02/10/24 13:01 NM [id number]) OP Gait Assessment Gait Gait Assistance Required: Independent Distance (Feet) 150 Gait Deviations General Gait Pattern Antalgic,Flexed Trunk Comments Gait Comments Early heel off on L foot, antalgic with weight acceptance onto B feet, slight trunk lean with pain and with stance PT-OP-J Posture/Palpation/Skin Start: 02/09/24 16:09 Freq: Status: Active Protocol: Document 02/10/24 10:44 NM (Rec: 02/10/24 13:01 NM [id number]) Posture Evaluation Position Standing Head/C-Spine Posture Forward Head L-Spine Posture Increased Lordosis Shoulder Posture (L) Rounded,(R) Rounded Pelvis Posture Anteriorly Tilted Palpation Assessment Location trunk Palpation Details Mild tenderness along abdominal scar, decreased soft tissue mobility Tenderness along posterior lower ribs, L anterior- mid ribs hips Palpation Details R hip- not tender to palpation but tightness along TFL, glutes, and hip flexors L hip- tender and tight at TFL , hip flexors, glute tendons, hamstrings PT-OP-K Range of Motion Start: 02/09/24 16:09 Freq: Status: Active Protocol: Document 02/10/24 10:44 NM (Rec: 02/10/24 11:30 NM [id number]) Lumbar Spine Range of Motion Lumbar Spine Active Percentage Flexion 75 Extension 50 Rotation Left 100 Rotation Right 50 Lateral Flexion Left 75 Lateral Flexion Right 50 Ankle and Foot Goniometric Range of Motion Ankle and Foot Right Dorsiflexion with Knee Flexed 5 Plantarflexion 42 Left Dorsiflexion with Knee Flexed 0 Plantarflexion 35 PT-OP-M Strength Start: 02/09/24 16:09 Freq: Status: Active Protocol: Document 02/10/24 10:44 NM (Rec: 02/10/24 11:30 NM [id number]) Hip Strength Hip Manual Muscle Testing Right Flexion (L2) 4- Good- Left Flexion (L2) 3+ Fair+ Knee Strength Knee Manual Muscle Testing Right Flexion (S2) 4 Good Extension (L3) 4 Good Left Flexion (S2) 4 Good Extension (L3) 4 Good Ankle/Foot Strength Ankle and Foot Manual Muscle Testing Right Dorsiflexion (L4) 4 Good Plantarflexion (S1) 4 Good Left Dorsiflexion (L4) 4 Good Plantarflexion (S1) 4 Good PT-OP-Q Treatments Start: 02/09/24 16:09 Freq: Status: Active Protocol: Document 03/26/24 08:19 NM (Rec: 03/26/24 09:03 NM [id number]) Therapeutic Exercises Standing Exercises wall posture Standing Exercise Name 1. snow jhon, 2. W, 3. T- HEP Side bilateral Resistance level 1 band Reps/Minutes 10 ea Comments pain free; cued form hip 3 way Standing Exercise Name hip flex, ext, abd Side bilateral Resistance level 1 band at thighs Equipment Used 1 hand support as needed Reps/Minutes 10 ea Manual Therapy Treatment Consent Patient gave verbal consent for manual Yes treatment Soft Tissue Mobilization back Body Location QL Mobilization Type Rolling,Other Intensity/Depth Superficial Body Position SL Comments With trunk lateral flexion for elongation and iliac crest caudal depression B hips Body Location hip flexors, TFL, glutes, lateral hips Mobilization Type Rolling,Strumming,Sustained Pressure Intensity/Depth Superficial Comments Performed in hooklying, sidelying, prone. L more restricted than R. Trigger points on L TFL, reduced with mobilization but not competely resolved. Educated to use ball at home for hips as needed Joint Mobilizations SIJ Joint B SIJ Direction caudal Grade III Body Position Prone Reps/Duration 4x30 ea Comments Reports relief of L>R SIJ with mobilization. Posteriorly prominent Manual Techniques MET Body Location L ant innom rot, R post innom rot Body Position Hooklying Reps/Duration 6x 6 holds using dowel Comments Monitored for pain. Reports significant reduction in pain levels with MET PT-OP-T Assessment and Plan Start: 02/09/24 16:09 Freq: Status: Active Protocol: Document 03/26/24 08:19 NM (Rec: 03/26/24 09:03 NM [id number]) Physical Therapy Assessment Goals Three Impairment 30 sec STS = 9, below age & gender-related norms Certified Dialysis Technician Goal (LTG) Pt will be able to perform at least 15 sit to stands in 30 seconds in order to demonstrate improved endurance and BLE strength 03/15/24: unable to assess same session due to fatigue following 6 MWT LTG Duration 12 weeks Two Impairment standing tolerance limited to 30 min d/t fatigue Short Term Goal (STG) Pt will be educated on energy conservation strategies in order to improve ability to perform ADLs due to fatigue 03/15/24: hand out issued STG Duration 6 weeks MET Half-Way Goal (LTG) Pt will report that she is able to stand >30 minutes to perform ADLs/IADLs without increase in fatigue at least 50% of the time 03/15/24: pt reports can stand for 30 min before needing to take a break; however, reports that less tired at least 50% of the time LTG Duration 12 weeks PROGRESSING One Impairment unable to complete 6 MWT 630 ft (3 min) Short Term Goal (STG) Pt will complete 6 MWT with pain <5/10 in B feet 03/15/24: 1279 ft w/o pain in feet STG Duration 8 weeks MET Half-Way Goal (LTG) Pt will report that she is able to ambulate for exercise at least 2x/wk without increase in foot pain 03/15/24: initiated ambulation program 2x/wk LTG Duration 12 weeks Assessment Summary Assessment Pt reports significant reduction in pain levels following manual treatment, especially MET for SIJ. Increased restrictions of L hip flexor muscles, including tightness due to decreased muscle length affecting joints . Pt responds better to progressive strengthening following manual treatment. Able to progress to resisted hip strengthening. Good feedback for postural re- education and periscapular strengthening at wall. Pt and PT discussed starting maintenance program for HEP strengthening to maximize pt's PT benefits for year. Pt and PT in agreement. Physical Therapy Plan Frequency and Duration Frequency of Treatment 1-2/wk Duration of treatment (weeks) 12 Plan of Care Start Date 02/10/24 Plan of Care End Date 05/07/24 Therapeutic Interventions Therapeutic Interventions Balance Training,Gait Training ,Home Exercise Program,Joint Mobilizations,Manual Therapy, Neuromuscular Re-education, Orthotic/Prosthetic Management ,Patient/Caregiver Education, Self-Care/Home Management, Sensory Integration,Soft Tissue Mobilization,Taping, Therapeutic Activities, Therapeutic Exercises Modalities Cold Pack/Ice Massage,Electric Stimulation,Hot Packs, Ultrasound Other Referrals/Consults Referrals/Consults Recommended Recommend referral to OT for further hand & infant toddler lead teacher strength assessment and symptom management with fine motor ADLs Next Visit Focus/Plan Next Note Type Treatment Note Next Visit Plan 2 unit sessions, 24 units MAX Progress glute/quad, global strengthening, postural strengthening. Check for 30 sec STS. Global strengthening and core bracing. Progress as directed. POC: Sessions and HEP w/ global strengthening- monitor for fatigue and dizziness Manual: scar mobilization on abdomen, possible rib STM and grade I-II mobilizations, pelvic realignment; STM to glutes/hips. Possible cupping or IASTM of scar mobility depending on tolerance
--- NOTE | 2024-03-31 08:13 | PT.OTN ---
Current Diagnoses Stiffness of right wrist, not elsewhere classified (03/31/24) Stiffness of left wrist, not elsewhere classified (03/31/24) Stiffness of right hip, not elsewhere classified (03/31/24) Stiffness of left hip, not elsewhere classified (03/31/24) Stiffness of right ankle, not elsewhere classified (03/31/24) Stiffness of left ankle, not elsewhere classified (03/31/24) Stiffness of right foot, not elsewhere classified (03/31/24) Stiffness of left foot, not elsewhere classified (03/31/24) Systemic lupus erythematosus, unspecified (03/31/24) Other lack of coordination (03/31/24) Weakness (03/31/24) Physical Therapy Treatment Note PT-OP-A Visit Information Start: 02/09/24 16:09 Freq: Status: Active Protocol: Document 03/31/24 07:27 NM (Rec: 03/31/24 08:12 NM [id number]) Out-Patient Physical Therapy Visit Information Visit Information Visit Type Treatment Note Visit Start Time 07:30 Visit Stop Time 08:05 Visit Number 8 units (visit 7 post eval) Evaluation Information Evaluation Date 02/10/24 Precautions Precautions feels like shaky, dizzy/ lightheaded when too fatigued RA and lupus, sjogren's PT-OP-B Current Condition Start: 02/09/24 16:09 Freq: Status: Active Protocol: Document 02/10/24 10:44 NM (Rec: 02/10/24 11:30 NM [id number]) Current Condition History of Current Condition Onset Date chronic History of Current Condition Pt reports a significant amount of injuries. Pt reports pain in her hands, feet, hips , ribs. Has RA and lupus. Pt was diagnosed as a teen. Currently not on any medication for lupus or RA at this time. Pt moved from [place] to [place] in 2020. Pt was on metrotrexate and prednisone. Pt reports impairments with sleeping due to L hip (also R), ADLs/IADLs due to fatigue and weakness, gripping (dropping objects). Hx of hairline fracture L hip. Pt reports that she had had hip pain for a few years, pain with sitting, sleeping with pillows supine and sidelying. Following her emergency hysterectomy, has a lot of scarring, likely contributing to rib pain ( under breast L, scapula R, R posterior ribs); 8 years. Had 2nd surgery because became septic. 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 Has hx of foot pain and injuries, hand injuries. Pain in feet R>L. Pt has a hx of significant injuries from past trauma Treatment Goals Patient/Caregiver Goals pain reduction, stronger, sleep better, standing tolerance Current Functional Impairments (Reported) Functional Limitations- Mobility/Gait standing 30 minutes -fatigue ambulation - 1 mi/day - fatigue PT-OP-C Subjective Start: 02/09/24 16:09 Freq: Status: Active Protocol: Document 03/31/24 07:27 NM (Rec: 03/31/24 08:12 NM [id number]) OP-PT Subjective Patient Comments Patient Comments Pt reports SIJ doing better but still slightly present. Still has shoulder blade pain, reports that her R pinky finger is starting to hurt and ache. States feels dislocated , but not dislocated; no changes to temperature, no bruising; thinks slept on it wrong. Has been doing exercises but having a hard time due to kids being ill; do not feel too hard or need to be changed. PT-OP-E Functional Tests Start: 02/09/24 16:09 Freq: Status: Active Protocol: Document 02/10/24 10:44 NM (Rec: 02/10/24 11:30 NM [id number]) Functional Tests 6 Minute Walk Test Distance 630 ft in 3 min Comments unable to complete d/t fatigue 30 Second Sit to Stand Test Score 9 PT-OP-F Manual Assessment Start: 02/09/24 16:09 Freq: Status: Active Protocol: Document 02/10/24 10:44 NM (Rec: 02/10/24 13:01 NM [id number]) Manual Assessments Soft Tissue Assessment Soft Tissue Mobility Assessment Tenderness and trigger points present over L TFL, glutes especially behind greater trochanter Tenderness along abdominal scar and intercostals, QL Joint Mobility Assessment Joint Mobility Assessment Hypermobility of R>L foot at midfoot, talocrural; hypomobile L talocrural and subtalar, R subtalar Hypomobility of lumbar spine with PA springing and ribs PT-OP-G Mobility & Gait Start: 02/09/24 16:09 Freq: Status: Active Protocol: Document 02/10/24 10:44 NM (Rec: 02/10/24 13:01 NM [id number]) OP Gait Assessment Gait Gait Assistance Required: Independent Distance (Feet) 150 Gait Deviations General Gait Pattern Antalgic,Flexed Trunk Comments Gait Comments Early heel off on L foot, antalgic with weight acceptance onto B feet, slight trunk lean with pain and with stance PT-OP-J Posture/Palpation/Skin Start: 02/09/24 16:09 Freq: Status: Active Protocol: Document 02/10/24 10:44 NM (Rec: 02/10/24 13:01 NM [id number]) Posture Evaluation Position Standing Head/C-Spine Posture Forward Head L-Spine Posture Increased Lordosis Shoulder Posture (L) Rounded,(R) Rounded Pelvis Posture Anteriorly Tilted Palpation Assessment Location trunk Palpation Details Mild tenderness along abdominal scar, decreased soft tissue mobility Tenderness along posterior lower ribs, L anterior- mid ribs hips Palpation Details R hip- not tender to palpation but tightness along TFL, glutes, and hip flexors L hip- tender and tight at TFL , hip flexors, glute tendons, hamstrings PT-OP-K Range of Motion Start: 02/09/24 16:09 Freq: Status: Active Protocol: Document 02/10/24 10:44 NM (Rec: 02/10/24 11:30 NM [id number]) Lumbar Spine Range of Motion Lumbar Spine Active Percentage Flexion 75 Extension 50 Rotation Left 100 Rotation Right 50 Lateral Flexion Left 75 Lateral Flexion Right 50 Ankle and Foot Goniometric Range of Motion Ankle and Foot Right Dorsiflexion with Knee Flexed 5 Plantarflexion 42 Left Dorsiflexion with Knee Flexed 0 Plantarflexion 35 PT-OP-M Strength Start: 02/09/24 16:09 Freq: Status: Active Protocol: Document 02/10/24 10:44 NM (Rec: 02/10/24 11:30 NM [id number]) Hip Strength Hip Manual Muscle Testing Right Flexion (L2) 4- Good- Left Flexion (L2) 3+ Fair+ Knee Strength Knee Manual Muscle Testing Right Flexion (S2) 4 Good Extension (L3) 4 Good Left Flexion (S2) 4 Good Extension (L3) 4 Good Ankle/Foot Strength Ankle and Foot Manual Muscle Testing Right Dorsiflexion (L4) 4 Good Plantarflexion (S1) 4 Good Left Dorsiflexion (L4) 4 Good Plantarflexion (S1) 4 Good PT-OP-Q Treatments Start: 02/09/24 16:09 Freq: Status: Active Protocol: Document 03/31/24 07:27 NM (Rec: 03/31/24 08:12 NM [id number]) Therapeutic Exercises Supine Exercises katya stretch Supine Exercise Name end of mat- HEP Side bilateral Reps/Minutes 60 ea Comments PT assist with descent initially, pt able to perform IND other leg TFL stretch Supine Exercise Name HEP Side bilateral Equipment Used strap around foot Reps/Minutes 60 ea Comments cued form; no pain Sitting Exercises 30 sec STS Equipment Used standard chair Reps/Minutes 13 Standing Exercises hip flexion Standing Exercise Name marching- HEP Side bilateral Resistance level 2 band thighs Reps/Minutes 10 ea ankle dorsiflexion Standing Exercise Name back supported on wall Side bilateral Reps/Minutes 15x3 hold Comments no pain lunge Standing Exercise Name HEP Side bilateral Equipment Used hand support at rail for balance Reps/Minutes 10 ea Comments cued wider JERRELL resisted stepping Standing Exercise Name lateral stepping- HEP Side bilateral Resistance level 2 band at thighs Reps/Minutes 3x10 ft Comments cued form Manual Therapy Treatment Consent Patient gave verbal consent for manual Yes treatment Soft Tissue Mobilization back Body Location QL Mobilization Type Rolling,Other Intensity/Depth Superficial Body Position SL Comments With trunk lateral flexion for elongation and iliac crest caudal depression B hips Body Location hip flexors, TFL, glutes, lateral hips Mobilization Type Rolling,Strumming,Sustained Pressure Intensity/Depth Superficial Comments Performed in hooklying, prone. L more restricted than R but improved compared to last session. Trigger points on L TFL, reduced with mobilization but not competely resolved. Joint Mobilizations B hips Direction PA Grade III Body Position Prone Reps/Duration 2x10 Comments mobilization with movement into hip extension, improved pain management at SIJ SIJ Joint B SIJ Direction caudal Grade III Body Position Prone Reps/Duration 2x30 ea Comments Continues to have improved relief PT-OP-T Assessment and Plan Start: 02/09/24 16:09 Freq: Status: Active Protocol: Document 03/31/24 07:27 NM (Rec: 03/31/24 08:12 NM [id number]) Physical Therapy Assessment Goals Three Impairment 30 sec STS = 9, below age & gender-related norms [employer] Preparer Apprentice Goal (LTG) Pt will be able to perform at least 15 sit to stands in 30 seconds in order to demonstrate improved endurance and BLE strength 03/15/24: unable to assess same session due to fatigue following 6 MWT 03/31/24: 13 STS LTG Duration 12 weeks PROGRESSING Two Impairment standing tolerance limited to 30 min d/t fatigue Short Term Goal (STG) Pt will be educated on energy conservation strategies in order to improve ability to perform ADLs due to fatigue 03/15/24: hand out issued STG Duration 6 weeks MET Long-Term Goal (LTG) Pt will report that she is able to stand >30 minutes to perform ADLs/IADLs without increase in fatigue at least 50% of the time 03/15/24: pt reports can stand for 30 min before needing to take a break; however, reports that less tired at least 50% of the time LTG Duration 12 weeks PROGRESSING One Impairment unable to complete 6 MWT 630 ft (3 min) Short Term Goal (STG) Pt will complete 6 MWT with pain <5/10 in B feet 03/15/24: 1279 ft w/o pain in feet STG Duration 8 weeks MET Long-Term Goal (LTG) Pt will report that she is able to ambulate for exercise at least 2x/wk without increase in foot pain 03/15/24: initiated ambulation program 2x/wk 03/31/24: pt limited with ambulation program due to weather LTG Duration 12 weeks Assessment Summary Assessment Pt continues to have improvements in SIJ pain, better with mobilization; initiated mobilization with movement to improve overall joint mobility. L hip more restricted than R hip. Pt progressing with exercise program. Initiated hip flexor stretching and strengthening, in addition to glute strengthening to promote better SIJ stability and to support hip flexors. Still mainly limited by decreased activity tolerance. Demos improvement toward 30 sec STS goal; not met. PT briefly educated pt on changing sitting position to avoid staying in same position which may impact how pt's hip tightness, etc. Pt and PT discussed discharge in 1 session to maximize PT benefits for 2024 as emphasis on strengthening at this time. Pt and PT in agreement. Physical Therapy Plan Frequency and Duration Frequency of Treatment 1-2/wk Duration of treatment (weeks) 12 Plan of Care Start Date 02/10/24 Plan of Care End Date 05/07/24 Therapeutic Interventions Therapeutic Interventions Balance Training,Gait Training ,Home Exercise Program,Joint Mobilizations,Manual Therapy, Neuromuscular Re-education, Orthotic/Prosthetic Management ,Patient/Caregiver Education, Self-Care/Home Management, Sensory Integration,Soft Tissue Mobilization,Taping, Therapeutic Activities, Therapeutic Exercises Modalities Cold Pack/Ice Massage,Electric Stimulation,Hot Packs, Ultrasound Other Referrals/Consults Referrals/Consults Recommended Recommend referral to OT for further hand & agricultural and forestry supervisor strength assessment and symptom management with fine motor ADLs Next Visit Focus/Plan Next Note Type Discharge Summary Next Visit Plan 2 unit sessions, 24 units MAX Check goals, esp30 sec STS. Pallof, lat pull down, rows, etc. Global strengthening and core bracing. POC: Sessions and HEP w/ global strengthening- monitor for fatigue and dizziness Manual: scar mobilization on abdomen, possible rib STM and grade I-II mobilizations, pelvic realignment; STM to glutes/hips. Possible cupping or IASTM of scar mobility depending on tolerance
--- NOTE | 2024-04-14 08:28 | PT.OTN ---
Current Diagnoses Stiffness of right wrist, not elsewhere classified (04/14/24) Stiffness of left wrist, not elsewhere classified (04/14/24) Stiffness of right hip, not elsewhere classified (04/14/24) Stiffness of left hip, not elsewhere classified (04/14/24) Stiffness of right ankle, not elsewhere classified (04/14/24) Stiffness of left ankle, not elsewhere classified (04/14/24) Stiffness of right foot, not elsewhere classified (04/14/24) Stiffness of left foot, not elsewhere classified (04/14/24) Systemic lupus erythematosus, unspecified (04/14/24) Other lack of coordination (04/14/24) Weakness (04/14/24) Physical Therapy Treatment Note PT-OP-A Visit Information Start: 02/09/24 16:09 Freq: Status: Active Protocol: Document 04/14/24 07:30 NM (Rec: 04/14/24 08:28 NM [id number]) Out-Patient Physical Therapy Visit Information Visit Information Visit Type Discharge Summary Visit Start Time 07:32 Visit Stop Time 08:05 Visit Number 12/17 (8 visits post eval) Evaluation Information Evaluation Date 02/10/24 Precautions Precautions feels like shaky, dizzy/ lightheaded when too fatigued RA and lupus, sjogren's PT-OP-B Current Condition Start: 02/09/24 16:09 Freq: Status: Active Protocol: Document 02/10/24 10:44 NM (Rec: 02/10/24 11:30 NM [id number]) Current Condition History of Current Condition Onset Date chronic History of Current Condition Pt reports a significant amount of injuries. Pt reports pain in her hands, feet, hips , ribs. Has RA and lupus. Pt was diagnosed as a teen. Currently not on any medication for lupus or RA at this time. Pt moved from [place] to [place] in 2020. Pt was on metrotrexate and prednisone. Pt reports impairments with sleeping due to L hip (also R), ADLs/IADLs due to fatigue and weakness, gripping (dropping objects). Hx of hairline fracture L hip. Pt reports that she had had hip pain for a few years, pain with sitting, sleeping with pillows supine and sidelying. Following her emergency hysterectomy, has a lot of scarring, likely contributing to rib pain ( under breast L, scapula R, R posterior ribs); 8 years. Had 2nd surgery because became septic. 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 Has hx of foot pain and injuries, hand injuries. Pain in feet R>L. Pt has a hx of significant injuries from past trauma Treatment Goals Patient/Caregiver Goals pain reduction, stronger, sleep better, standing tolerance Current Functional Impairments (Reported) Functional Limitations- Mobility/Gait standing 30 minutes -fatigue ambulation - 1 mi/day - fatigue PT-OP-C Subjective Start: 02/09/24 16:09 Freq: Status: Active Protocol: Document 04/14/24 07:30 NM (Rec: 04/14/24 08:28 NM [id number]) OP-PT Subjective Patient Comments Patient Comments Pt reports that she is having chest spasms (reports muscles) on R side and her upper back. Hx of 2 breast reductions, reports that thinks may be a complication from most recent one (performed years ago when moved here, not recently). Pt reports that her hands still challenging d/t tremors, dropping items; reports that has occasional numbness still. Will follow up with PCP next week but unsure if related to lupus or something else. Ready to d/c today with exercises. Reports exercises going well but does not do them often due to fatigue. Overall activity level improved but hard to coordinate family and conserving energy. SIJ pain continuing to improve PT-OP-E Functional Tests Start: 02/09/24 16:09 Freq: Status: Active Protocol: Document 02/10/24 10:44 NM (Rec: 02/10/24 11:30 NM [id number]) Functional Tests 6 Minute Walk Test Distance 630 ft in 3 min Comments unable to complete d/t fatigue 30 Second Sit to Stand Test Score 9 PT-OP-F Manual Assessment Start: 02/09/24 16:09 Freq: Status: Active Protocol: Document 02/10/24 10:44 NM (Rec: 02/10/24 13:01 NM [id number]) Manual Assessments Soft Tissue Assessment Soft Tissue Mobility Assessment Tenderness and trigger points present over L TFL, glutes especially behind greater trochanter Tenderness along abdominal scar and intercostals, QL Joint Mobility Assessment Joint Mobility Assessment Hypermobility of R>L foot at midfoot, talocrural; hypomobile L talocrural and subtalar, R subtalar Hypomobility of lumbar spine with PA springing and ribs PT-OP-G Mobility & Gait Start: 02/09/24 16:09 Freq: Status: Active Protocol: Document 02/10/24 10:44 NM (Rec: 02/10/24 13:01 NM [id number]) OP Gait Assessment Gait Gait Assistance Required: Independent Distance (Feet) 150 Gait Deviations General Gait Pattern Antalgic,Flexed Trunk Comments Gait Comments Early heel off on L foot, antalgic with weight acceptance onto B feet, slight trunk lean with pain and with stance PT-OP-J Posture/Palpation/Skin Start: 02/09/24 16:09 Freq: Status: Active Protocol: Document 02/10/24 10:44 NM (Rec: 02/10/24 13:01 NM [id number]) Posture Evaluation Position Standing Head/C-Spine Posture Forward Head L-Spine Posture Increased Lordosis Shoulder Posture (L) Rounded,(R) Rounded Pelvis Posture Anteriorly Tilted Palpation Assessment Location trunk Palpation Details Mild tenderness along abdominal scar, decreased soft tissue mobility Tenderness along posterior lower ribs, L anterior- mid ribs hips Palpation Details R hip- not tender to palpation but tightness along TFL, glutes, and hip flexors L hip- tender and tight at TFL , hip flexors, glute tendons, hamstrings PT-OP-K Range of Motion Start: 02/09/24 16:09 Freq: Status: Active Protocol: Document 02/10/24 10:44 NM (Rec: 02/10/24 11:30 NM [id number]) Lumbar Spine Range of Motion Lumbar Spine Active Percentage Flexion 75 Extension 50 Rotation Left 100 Rotation Right 50 Lateral Flexion Left 75 Lateral Flexion Right 50 Ankle and Foot Goniometric Range of Motion Ankle and Foot Right Dorsiflexion with Knee Flexed 5 Plantarflexion 42 Left Dorsiflexion with Knee Flexed 0 Plantarflexion 35 PT-OP-M Strength Start: 02/09/24 16:09 Freq: Status: Active Protocol: Document 02/10/24 10:44 NM (Rec: 02/10/24 11:30 NM [id number]) Hip Strength Hip Manual Muscle Testing Right Flexion (L2) 4- Good- Left Flexion (L2) 3+ Fair+ Knee Strength Knee Manual Muscle Testing Right Flexion (S2) 4 Good Extension (L3) 4 Good Left Flexion (S2) 4 Good Extension (L3) 4 Good Ankle/Foot Strength Ankle and Foot Manual Muscle Testing Right Dorsiflexion (L4) 4 Good Plantarflexion (S1) 4 Good Left Dorsiflexion (L4) 4 Good Plantarflexion (S1) 4 Good PT-OP-Q Treatments Start: 02/09/24 16:09 Freq: Status: Active Protocol: Document 04/14/24 07:30 NM (Rec: 04/14/24 08:28 NM [id number]) Therapeutic Exercises Sitting Exercises 30 sec STS Sitting Exercise Name HEP (as regular sit to stands) Equipment Used standard chair Reps/Minutes 15 Standing Exercises pallof Standing Exercise Name press- HEP Side bilateral Resistance level 1 band Reps/Minutes 15 ea Comments good core brace, pain free biceps/triceps Standing Exercise Name HEP Side bilateral Resistance 5# db ea hand Equipment Used seated for energy conservation Reps/Minutes 10 ea exercise, ea side rows Standing Exercise Name upright rows- HEP Side bilateral Resistance 5# db ea hand Reps/Minutes 10 ea lat pull down Standing Exercise Name HEP Side bilateral Resistance level 1 band Reps/Minutes 10 Comments cued form; no pain lunge Standing Exercise Name 1. lunge, 2. side lunge Side bilateral Equipment Used hand support at rail Reps/Minutes 8 ea resisted stepping Standing Exercise Name lateral stepping- HEP Side bilateral Resistance level 2 band at thighs Reps/Minutes 2x10 ft Comments provided level 3 band for progression wall squat Standing Exercise Name transition to STS for improved carryover Self-Care/Home Management Treatment Education Patient Education Pain Management Other Education PT educated pt on following up with PCP or physician who managed pt's breast reduction case due to new onset breast/ chest pain on R side PT-OP-T Assessment and Plan Start: 02/09/24 16:09 Freq: Status: Active Protocol: Document 04/14/24 07:30 NM (Rec: 04/14/24 08:28 NM [id number]) Physical Therapy Assessment Goals Three Impairment 30 sec STS = 9, below age & gender-related norms Longterm Goal (LTG) Pt will be able to perform at least 15 sit to stands in 30 seconds in order to demonstrate improved endurance and BLE strength 03/15/24: unable to assess same session due to fatigue following 6 MWT 03/31/24: 13 STS 04/14/24: 15 STS LTG Duration 12 weeks MET Two Impairment standing tolerance limited to 30 min d/t fatigue Short Term Goal (STG) Pt will be educated on energy conservation strategies in order to improve ability to perform ADLs due to fatigue 03/15/24: hand out issued STG Duration 6 weeks MET Deck Scaler Goal (LTG) Pt will report that she is able to stand >30 minutes to perform ADLs/IADLs without increase in fatigue at least 50% of the time 03/15/24: pt reports can stand for 30 min before needing to take a break; however, reports that less tired at least 50% of the time LTG Duration 12 weeks PARTIALLY MET One Impairment unable to complete 6 MWT 630 ft (3 min) Short Term Goal (STG) Pt will complete 6 MWT with pain <5/10 in B feet 03/15/24: 1279 ft w/o pain in feet STG Duration 8 weeks MET Deck Scaler Goal (LTG) Pt will report that she is able to ambulate for exercise at least 2x/wk without increase in foot pain 03/15/24: initiated ambulation program 2x/wk 03/31/24: pt limited with ambulation program due to weather 04/14/24: ambulating intermittently due to weather LTG Duration 12 weeks MET Assessment Summary Assessment Pt tolerated session well. Met 30 Sec STS goal today. Emphasis on initiating UE/ trunk exercises for general strengthening today with respect to low back pain and chest pain. Pt responds well to low load and low dose exercises. Demos good form with minimal cues for all. Issued progressions for previously provided BLE strengthening exercises. PT and pt in agreement about discharge from PT today for continued strengthening at home as goals met and to maximize 2024 PT visits. Physical Therapy Plan Frequency and Duration Frequency of Treatment 1-2/wk Duration of treatment (weeks) 12 Plan of Care Start Date 02/10/24 Plan of Care End Date 05/07/24 Therapeutic Interventions Therapeutic Interventions Balance Training,Gait Training ,Home Exercise Program,Joint Mobilizations,Manual Therapy, Neuromuscular Re-education, Orthotic/Prosthetic Management ,Patient/Caregiver Education, Self-Care/Home Management, Sensory Integration,Soft Tissue Mobilization,Taping, Therapeutic Activities, Therapeutic Exercises Modalities Cold Pack/Ice Massage,Electric Stimulation,Hot Packs, Ultrasound Other Referrals/Consults Referrals/Consults Recommended Recommend referral to OT for further hand & education supervisor strength assessment and symptom management with fine motor ADLs Discharge Physical Therapy Discharge Reasons Goals Met Discharge Comments 2/3 goals met, progressing toward last goal. Pt and PT discussed discharge today at previous sessions due to limitations in insurance visits. PT and pt in agreement . PT provided maintenance HEP for strengthening with clear education for choosing 3-5 exercises about 2-3x/wk as able for energy conservation. Pt in agreement. Next Visit Focus/Plan Next Note Type Discharge Summary Next Visit Plan 2 unit sessions, 24 units MAX discharge from PT
== END 2024-04-23 09:55 | disposition home or self-care (01) ==
LOC: PHYS 07:30
PROVIDERS: Family Provider Student in an Organized Health Care Education/Training Program; PCP Student in an Organized Health Care Education/Training Program; Referring Provider Student in an Organized Health Care Education/Training Program; Visit Provider Student in an Organized Health Care Education/Training Program
DX: M32.9 Systemic lupus erythematosus, unspecified (principal); M25.672 Stiffness of left ankle, not elsewhere classified; M25.652 Stiffness of left hip, not elsewhere classified; M25.632 Stiffness of left wrist, not elsewhere classified; M25.651 Stiffness of right hip, not elsewhere classified; M25.674 Stiffness of right foot, not elsewhere classified; M25.671 Stiffness of right ankle, not elsewhere classified; M25.675 Stiffness of left foot, not elsewhere classified; M25.631 Stiffness of right wrist, not elsewhere classified; R53.1 Weakness; R27.8 Other lack of coordination
CPT/HCPCS: 97110; 97140; 97162; 97530

== ENCOUNTER 2024-04-15 12:45 | Day surgery (SDC) | payer OTHER, MEDICAID, SELFPAY ==
[2024-04-15 13:05] VITALS: BP 123/69; PULSE 82; RESP 17; TEMP 36.6; O2SAT 100
[2024-04-15] MEDS: LACTATED RINGERS 1,000 ML 42 ML IV (13:05)
--- NOTE | 2024-04-15 13:41 | P.HP_ITS ---
History of Present Illness History of Present Illness Date Patient Seen: 04/15/24 Time Patient Seen: 13:41 Chief complaint: [facility] – [place], [place] Narrative: Yris is a 48 year old woman here for a colonoscopy. She did have one many years ago when she was young for a tear. Her father recently of colon cancer and he was under 65 when he was diagnosed. [facility] Medical History (Updated 12/30/23 @ 12:18 by Susy Khoury MD) Labial cyst PTSD (post-traumatic stress disorder) Anxiety Headache Fractures Foot pain Chronic back pain Chicken pox (~1993) Factor V Leiden (~2015) Anemia (~1995) Ruptured tympanic membrane (~1991) Recurrent sinusitis (~1995) History of recurrent ear infection (~1979) Painful menstrual periods (~1990) Ovarian cyst (~1992) Irregular menstrual cycle (~1990) Heavy menstrual period (~1990) Family history of diabetes mellitus Occasional tremors Migraine headache Endometriosis (~1993) Lupus (systemic lupus erythematosus) (~1995) Rheumatoid arthritis (~1993) Sjogren's disease (~2011) ADHD Surgical History (Updated 04/22/23 @ 19:14 by Rita Dang) Anesthesia History of breast surgery (~2022) History of infection (~2012) S/P laparoscopic surgery (~1997) History of section History of ear surgery Hx of hysterectomy (~2016) Family History (Updated 04/22/23 @ 19:20 by Rita Dang) Father Colon cancer Mental health problem Mother Breast cancer History of heart attack Mental health problem Stroke Grandfather Cancer Grandmother Diabetes mellitus History of heart disease Hypertension Stroke Grandfather Suicide Grandmother Suicide Social History Smoking Status: Never smoker alcohol intake: current Meds Home Medications and Allergies Home Medications Medication Instructions Recorded Confirmed Type progesterone micronized 200 mg 200 mg PO ONCE PM 04/02/23 04/15/24 History capsule dextroamphetamine-amphetamine ER 10 mg PO DAILY #30 caps 10/28/23 04/15/24 Rx 10 mg 24hr capsule,extend release (Adderall XR) thyroid (pork) 30 mg tablet (KITCHEN STEWARD/STEWARDESS 30 mg PO DAILY 11/12/23 04/15/24 History Thyroid) Estrogen pellet subdermal 11/28/23 12/30/23 History fluconazole 150 mg tablet 150 mg PO Q3D 2 doses #2 tabs 11/28/23 12/30/23 Rx Allergies Allergy/AdvReac Type Severity Reaction Status Date / Time diphenhydramine AdvReac Intermediate ITCHING Verified 04/15/24 12:58 [From Benadryl] Exam Vital Signs (past 8 hours): - 04/15/24 13:05 Temperature 97.8 F Pulse Rate 82 Respiratory Rate 17 Blood Pressure 123/69 Pulse Oximetry 100 Oxygen Delivery Method Room Air Oxygen Delivery Method Room Air Const General: healthy appearing Assessment & Plan Assessment and plan (1) Family history of colon cancer: Status: Acute Plan Colonoscopy Time-Based Coding :: [TOTAL MINUTES] spent with patient and on the chart (including review of chart, obtaining history, exam, reviewing outside data, placing orders, documenting exam and treatment plan, and counseling patient) on [DATE]. 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
--- NOTE | 2024-04-15 14:35 | PM.OP.COLON ---
Operative Date/Time/Diagnoses Date of procedure: 04/15/24 Time of procedure: 14:35 Pre-op diagnosis: Family history of colon cancer Post-op diagnosis: same Procedure & Clinicians Study performed: Colonoscopy Same procedure as scheduled: Yes Surgeon: Víctor White Procedure Notes Procedure in detail: Surgeon: Víctor White MD Anesthesia: Ahmet Solorzano D.O. Procedure: The patient was brought to the endoscopy suite, placed in left lateral decubitus position. The patient was connected to monitoring devices. A time-out was performed. Sedation was administered. Once the patient was adequately sedated, a digital rectal exam was performed and was normal. The scope was then inserted and advanced to the cecum where the appendiceal orifice was identified and photographed. The scope was then slowly withdrawn over greater than 6 minutes. The mucosa was thoroughly inspected. No abnormalities were found. The scope was retroflexed in the rectum. The scope was straightened and removed. The patient was awakened and brought to recovery. Scope withdrawal time: 8 minutes Sedation time: 18 minutes EBL: 0 Findings: Normal colon Post-procedure Recommendations: Colonoscopy in 5 years Disposition: PACU
[2024-04-15 14:37] VITALS: BP 109/62; PULSE 74; RESP 15; TEMP 36.2; O2SAT 100
[2024-04-15] MEDS: ONDANSETRON 4 MG/2 ML INJ IV (14:40)
[2024-04-15 14:42] VITALS: BP 126/66; PULSE 71; RESP 13; O2SAT 100
[2024-04-15 15:19] VITALS: BP 120/75; PULSE 74; RESP 15; O2SAT 98
== END 2024-04-15 15:20 | disposition home or self-care (01) ==
PROVIDERS: Family Provider Student in an Organized Health Care Education/Training Program; PCP Student in an Organized Health Care Education/Training Program; Referring Provider Surgery; Visit Provider Surgery
PROC: 0DJD8ZZ Inspection of Lower Intestinal Tract, Via Natural or Artificial Opening Endoscopic (ICD-10-PCS; CPT 45378; principal; 2024-04-15 14:00)
DX: Z12.11 Encounter for screening for malignant neoplasm of colon (principal); Z80.0 Family history of malignant neoplasm of digestive organs
CPT/HCPCS: 45378; J2405; J2704

== ENCOUNTER → 2024-06-10 10:31 | Outpatient (CLI) | payer OTHER, SELFPAY | LOC: PHYS 10:32 | PROVIDERS: Family Provider Student in an Organized Health Care Education/Training Program; PCP Student in an Organized Health Care Education/Training Program; Referring Provider Student in an Organized Health Care Education/Training Program; Visit Provider Student in an Organized Health Care Education/Training Program | DX: R20.0 Anesthesia of skin (principal); R20.2 Paresthesia of skin | CPT/HCPCS: 95886; 95912 ==

== ENCOUNTER 2024-06-25 12:41 | Emergency (ER) | payer OTHER, SELFPAY ==
[2024-06-25] VITALS (14 sets, daily range): BP systolic 121–164; BP diastolic 79–100; PULSE 68–239; RESP 14–29; TEMP 36.5; O2SAT 97–100; BMI 24.1
--- NOTE | 2024-06-25 12:59 | EKG_ITS ---
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
--- NOTE | 2024-06-25 12:59 | DI.RAD.S_ITS ---
PROCEDURE: XR CHEST 1V INDICATIONS: chest pain TECHNIQUE: One view of the chest was acquired. COMPARISON: [facility], CR, XR CHEST 1V, 03/07/2022, 17:17. FINDINGS: Surgical changes and devices: None. Lungs and pleura: Bibasilar reticulonodular opacities. No pleural effusions or pneumothorax. Mediastinum: Mediastinal contours appear normal. Heart size is normal. Bones and chest wall: No suspicious bony lesions. Overlying soft tissues appear unremarkable. IMPRESSION: Reticulonodular opacities in the lung bases may be secondary to a viral or atypical pneumonia versus edema. Approved by: Shaun Denise M.D. on 06/25/2024 at 13:31
[2024-06-25 13:09] LABS: Add Manual Diff / Slide Review NO; Basophils Absolute Auto 0 /uL (0-100); Basophils Percent Auto 0.9 % (0-2); Eosinophils Absolute Auto 100 /uL (0-450); Eosinophils Percent Auto 1.1 % (2-4); Hematocrit 41.8 % (36-46); Hemoglobin 14.3 g/dL (12.0-16.0); Lymphocytes Absolute Auto 2000 /uL (1100-4500); Lymphocytes Percent Auto 35.8 % (25-40); Mean Corpuscular HGB Conc 34.2 % (30-36); Mean Corpuscular Hemoglobin 31.1 PG (26-34); Mean Corpuscular Volume 90.9 fL (80-100); Monocytes Absolute Auto 400 /uL (0-900); Neutrophils Absolute Auto 3100 /uL (1500-7000); Neutrophils Percent Auto 55.2 % (50-75); Platelet Count 286 X10^3/uL (150-400); Red Cell Distribution Width 13.6 % (11.6-14.8); White Blood Cell Count 5.6 X10^3/uL (4.5-11.0)
[2024-06-25] MEDS: ADENOSINE 6 MG/2 ML VIAL IV (13:10)
[2024-06-25] MEDS: SODIUM CHLORIDE 0.9% 1,000 ML 1000 ML IV (13:10)
--- NOTE | 2024-06-25 13:14 | ED_ITS ---
HPI - Chest Pain General Chief Complaint: Chest Pain Stated Complaint: Heart pounding, chest tightness, left hand tingles Time Seen by Provider: 06/25/24 13:02 Source: patient, RN notes reviewed and old records reviewed Mode of arrival: Ambulatory Limitations: no limitations History of Present Illness HPI narrative: 49-year-old female status about 30 minutes prior to arrival felt like her heart rate was very fast, felt a little lightheaded and a little chest discomfort little shortness of breath. No nausea or vomiting no other GI or urinary symptoms. Patient has a occasionally had some very short episodes but nothing that persisted. She denies any fevers no other symptoms. No new swelling of extremities. No passing out. Patient was states he was not ammonia patient for thyroid, progesterone estrogen pellets, he has had a prior hysterectomy, she had a breast reduction with complications and surgery secondary infection, prior she was 2nd and also had complication with the infection had to go back to the OR. No tobacco. Occasional alcohol, no IV or recreational drugs. She denies any long distance travel. No known history of family embolic events, cardiac arrhythmias although she states she was unaware of her family's history on her father's side. Dr. Khoury is her current physician. Related Data Home Medications Medication Instructions Recorded Confirmed progesterone micronized 200 mg 200 mg PO ONCE PM 04/02/23 05/31/24 capsule thyroid (pork) 30 mg tablet (MANAGER MEETING 30 mg PO DAILY 11/12/23 05/31/24 Thyroid) Estrogen pellet subdermal 11/28/23 05/31/24 Previous Rx's Medication Instructions Recorded fluconazole 150 mg tablet 150 mg PO Q3D 2 doses #2 tabs 11/28/23 cyclobenzaprine 5 mg tablet 5 mg PO TID PRN muscle spasm #90 04/22/24 tabs amoxicillin 875 mg-potassium 1 tab PO BID #14 tabs 05/31/24 clavulanate 125 mg tablet montelukast 10 mg tablet 10 mg PO DAILY #30 tabs 05/31/24 metoprolol succinate 25 mg capsule 25 mg PO DAILY #20 ea 06/25/24 sprinkle, ext. release 24 hr (Kapspargo Sprinkle) Allergies Allergy/AdvReac Type Severity Reaction Status Date / Time diphenhydramine AdvReac Intermediate ITCHING Verified 06/25/24 12:58 [From Benadryl] Review of Systems Review of Systems ROS Unobtainable: All systems reviewed & are unremarkable except as noted in HPI and below Patient History Medical History Labial cyst PTSD (post-traumatic stress disorder) Anxiety Headache Fractures Foot pain Chronic back pain Chicken pox (~1993) Factor V Leiden (~2015) Anemia (~1995) Ruptured tympanic membrane (~1991) Recurrent sinusitis (~1995) History of recurrent ear infection (~1979) Painful menstrual periods (~1990) Ovarian cyst (~1992) Irregular menstrual cycle (~1990) Heavy menstrual period (~1990) Family history of diabetes mellitus Occasional tremors Migraine headache Endometriosis (~1993) Lupus (systemic lupus erythematosus) (~1995) Rheumatoid arthritis (~1993) Sjogren's disease (~2011) ADHD Surgical History Anesthesia History of breast surgery (~2022) History of infection (~2012) S/P laparoscopic surgery (~1997) History of section History of ear surgery Hx of hysterectomy (~2016) Family History Father Colon cancer Mental health problem Mother Breast cancer History of heart attack Mental health problem Stroke Grandfather Cancer Grandmother Diabetes mellitus History of heart disease Hypertension Stroke Grandfather Suicide Grandmother Suicide Social History Smoking Status: Never smoker alcohol intake: current Smoking Status: Never smoker alcohol intake frequency: holidays/special occasions only Exam Initial Vital Signs Initial Vital Signs: Vital Signs Temperature 97.7 F 06/25/24 12:55 Pulse Rate 68 06/25/24 12:55 Respiratory Rate 16 06/25/24 12:55 Blood Pressure 164/95 H 06/25/24 12:55 Pulse Oximetry 99 06/25/24 12:55 Oxygen Delivery Method Room Air 06/25/24 12:55 Course Orders Ordered: ED Orders 06/25/24 12:59 XR chest 1V Stat EKG-12 Lead Stat 06/25/24 13:01 Complete Blood Count AUTO DIFF Stat Comprehensive Metabolic Panel Stat D Dimer Stat Lipase Stat Magnesium Stat NT-proBNP (BNP-Adult 18+) Stat PTT Partial Thromboplastin Italo Stat Prothrombin Time INR Stat TSH w/ Reflex to FT4 Stat Troponin & CK Cardiac Panel Stat 06/25/24 13:15 EKG-12 Lead Stat Discontinued Medications Adenosine (Adenosine 6 Mg/2 Ml Vial) 6 mg IV NOW ONE Stop: 06/25/24 13:07 Last Admin: 06/25/24 13:10 Dose: 6 mg Documented By: SB Adenosine (Adenosine 6 Mg/2 Ml Vial) 12 mg IV NOW ONE Stop: 06/25/24 13:09 Last Admin: 06/25/24 13:34 Dose: Not Given Documented By: SB Aspirin (Aspirin 81 Mg Chew Tab) 324 mg PO NOW ONE Stop: 06/25/24 13:00 Last Admin: 06/25/24 13:33 Dose: Not Given Documented By: SB Sodium Chloride (Normal Saline 0.9%) 1,000 mls @ 1,000 mls/hr IV BOLUS ONE Stop: 06/25/24 14:13 Last Admin: 06/25/24 13:23 Dose: Not Given Documented By: SB Sodium Chloride (Normal Saline 0.9%) 1,000 mls @ 1,000 mls/hr IV BOLUS ONE Stop: 06/25/24 14:47 Last Admin: 06/25/24 13:55 Dose: Not Given Documented By: SB Sodium Chloride (Normal Saline 0.9%) 1,000 mls @ 1,000 mls/hr IV BOLUS ONE Stop: 06/25/24 14:49 Last Admin: 06/25/24 13:10 Dose: 1,000 mls/hr Documented By: SB Vital Signs Vital signs: Vital Signs - 8 hr 06/25/24 12:55 06/25/24 13:05 06/25/24 13:06 Temperature 97.7 F Pulse Rate 68 235 H 239 H Respiratory Rate 16 22 24 Blood Pressure 164/95 H 149/100 H 146/98 H Pulse Oximetry 99 100 100 Oxygen Delivery Method Room Air 06/25/24 13:12 06/25/24 13:20 06/25/24 13:30 Temperature Pulse Rate 122 H 100 H 107 H Respiratory Rate 17 14 22 Blood Pressure 127/81 143/92 H Pulse Oximetry 100 98 99 Oxygen Delivery Method 06/25/24 13:37 06/25/24 13:45 06/25/24 14:00 Temperature Pulse Rate 103 H 99 H 98 H Respiratory Rate 22 29 H 16 Blood Pressure 140/85 133/91 H 126/79 Pulse Oximetry 100 99 98 Oxygen Delivery Method 06/25/24 14:15 06/25/24 14:30 06/25/24 14:45 Temperature Pulse Rate 100 H 99 H 97 H Respiratory Rate 16 15 16 Blood Pressure 128/81 133/84 122/79 Pulse Oximetry 98 98 97 Oxygen Delivery Method 06/25/24 15:00 06/25/24 15:15 Temperature Pulse Rate 92 H 91 H Respiratory Rate 16 17 Blood Pressure 121/79 124/82 Pulse Oximetry 97 97 Oxygen Delivery Method Room Air MDM - Chest Pain Lab Data 06/25/24 13:01 06/25/24 13:01 Labs: Lab Results 06/25/24 Range/Units 13:01 WBC 5.6 (4.5-11.0) X10^3/uL RBC 4.60 (4.0-5.2) X10^6/uL Hgb 14.3 (12.0-16.0) g/dL Hct 41.8 (36-46) % MCV 90.9 (80-100) fL MCH 31.1 (26-34) PG MCHC 34.2 (30-36) % RDW 13.6 (11.6-14.8) % Plt Count 286 (150-400) X10^3/uL Neut % (Auto) 55.2 (50-75) % Lymph % (Auto) 35.8 (25-40) % Hodgeman % (Auto) 7.0 (3-14) % Eos % (Auto) 1.1 L (2-4) % Baso % (Auto) 0.9 (0-2) % Neut # (Auto) 3100 (6990-6739) /uL Lymph # (Auto) 2000 (2167-8733) /uL Hodgeman # (Auto) 400 (0-900) /uL Eos # (Auto) 100 (0-450) /uL Baso # (Auto) 0 (0-100) /uL PT 10.4 (9.4-12.5) SECONDS INR 0.9 (0.9-1.3) APTT 33 (25.1-36.5) SECONDS D-Dimer 243 (<500) ng/ml Sodium 137 (137-145) mmol/L Potassium 4.0 (3.4-5.1) mmol/L Chloride 103 (98-107) mmol/L Carbon Dioxide 26 (22-32) mmol/L BUN 18 H (7-17) mg/dL Creatinine 0.87 (0.52-1.04) mg/dL Estimated GFR > 60 (>60) mL/min BUN/Creatinine Ratio 20.7 (6-22) Glucose 125 H (70-99) mg/dL Calcium 9.5 (8.4-10.2) mg/dL Magnesium 2.2 (1.6-2.3) mg/dL Total Bilirubin 0.6 (0.2-1.3) mg/dL AST 85 H (14-36) IU/L ALT 87 H (<35) IU/L Alkaline Phosphatase 114 (38-126) U/L Total Creatine Kinase 32 (30-135) U/L Troponin I < 0.012 (0.01-0.034) ng/mL NT-Pro-B Natriuret Pep 29 (<125) pg/mL Total Protein 7.8 (6.3-8.2) g/dL Albumin 4.7 (3.5-5.0) g/dL Globulin 3.1 (1.7-4.1) g/dL Albumin/Globulin Ratio 1.5 (1.0-2.8) Lipase 92 (23-300) U/L TSH 1.86 (0.47-4.68) uIU/mL ECG Data Attestation: I personally reviewed and interpreted this ECG as follows: Interpretation: Rate of 236, QRS is 68 QTC of [address] depression lateral leads. EKG shows sinus rhythm, rate of 100, WI 110, QRS 86 QTC 423. Nonspecific change no persistent ST depression. No elevation. MDM Narrative Medical decision making narrative: 49-year-old female history of lupus presents with light of fast heartbeat, patient's appears to be an SVT she responded nicely to adenosine 6 mg here in the department. She appears to be in sinus rhythm still slightly tachycardic at 90-100 beats per minute. Labs CBC appears appropriate, INR PTT are normal, dimer is 243. Electrolytes are overall appropriate BUN is 18 creatinine 0.87, glucose is 125 AST ALT are slightly up at 85 and 87 was mildly elevated at 42 in November of 2023 normal bilirubin, troponin is less than 0.012 BNP is 29. TSH is 1.86 EKG shows SVT followed by sinus rhythm after adenosine 6 mg. Chest x-ray reticulonodular opacities and bases may be secondary viral or atypical pneumonia versus edema. Patient received fluids, adenosine 6 mg IV Rechecked after medications. Patient is feeling much improved. Reviewed her imaging today as well as workup. We discussed obtaining CT of the chest to evaluate further. She has not had any pneumonia or infectious type symptoms. Patient elected to hold off on CT but will follow up with her physical science professor Dr. Benítez. Patient is also follow up with primary care/Cardiology. Recommend Holter and further workup. We will give prescription for metoprolol. We did discuss with the patient's history of could potentially be a manifestation although is not common. Discussed return precautions all questions answered. Discharge Plan Departure Patient Disposition: Home Clinical Impression: SVT (supraventricular tachycardia) Instructions: Paroxysmal Supraventricular Tachycardia Activity Restrictions/Additional Instructions: Follow up with Cardiology and/or your primary care you appear to have had an episode of supraventricular tachycardia. This can occur for variety of reasons but today your workup did not show clear cause. There were little bit of reticulonodular changes on your chest x-ray follow up with your physician in your Detective Captain. Make sure you are well hydrated. I would recommend avoiding any energy drinks or caffeine or other stimulants at this time. Prescription for metoprolol was sent to [facility] in [place]. If you are having a lot of palpitations or short periods of fast heart rate go ahead and take this medication. Please return if you are for recurrent symptoms, new chest pain, new shortness of breath, lightheadedness or passing out, new swelling of your extremities or other new or concerning changes. Prescriptions: New [place] Sprinkle 25 mg capsule,sprinkle,ER 24hr 25 mg PO DAILY Qty: 20 0RF No Action progesterone micronized 200 mg capsule 200 mg PO ONCE PM thyroid (pork) [MANAGER MEETING Thyroid] 30 mg tablet 30 mg PO DAILY cyclobenzaprine 5 mg tablet 5 mg PO TID PRN (Reason: muscle spasm) Qty: 90 3RF montelukast 10 mg tablet 10 mg PO DAILY Qty: 30 3RF amoxicillin-pot clavulanate 875-125 mg tablet 1 tab PO BID Qty: 14 0RF Estrogen pellet subdermal Rx Instructions: q3mo fluconazole 150 mg tablet 150 mg PO Q3D Qty: 2 3RF Referrals: Yuliya Lazo MD [Physician] - Susy Khoury MD [Primary Care Provider] - Jossue Benítez MD [Non-Staff] - Stand Alone Forms: Patient Portal/API/Survey
[2024-06-25 13:15] LABS: INR 0.9 (0.9-1.3); Prothrombin Time 10.4 SECONDS (9.4-12.5)
--- NOTE | 2024-06-25 13:15 | EKG_ITS ---
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
--- NOTE | 2024-06-25 13:16 | PC.NURSE ---
Patient arrives in SVT (HR >230), ECG completed in triage and IV placed. Patient moved to room 1 and MD at bedside, verbal orders received to administer 6mg IV adenosine. Patient placed on defibrillator pads and Zoll monitor as well as central tele monitoring. HR currently 239 at time of Rx administration. Patient given IV adenosine via rapid push followed by rapid NS flush. Post administration patient's HR decreased to 100, repeat ECG done, ST. BP stable at 127/81. MD updated. Patient denies any immediate complaints at this time, reports feeling better.
[2024-06-25 13:18] LABS: PTT Partial Thromboplastin Tim 33 SECONDS (25.1-36.5)
[2024-06-25 13:19] LABS: Alanine Aminotransferase 87 IU/L (<35); Albumin 4.7 g/dL (3.5-5.0); Albumin Globulin Ratio 1.5 (1.0-2.8); Alkaline Phosphatase 114 U/L (38-126); Aspartate Aminotransferase 85 IU/L (14-36); BUN Creatinine Ratio 20.7 (6-22); Bilirubin Total 0.6 mg/dL (0.2-1.3); Blood Urea Nitrogen 18 mg/dL (7-17); Calcium 9.5 mg/dL (8.4-10.2); Carbon Dioxide 26 mmol/L (22-32); Chloride 103 mmol/L (98-107); Creatine Kinase 32 U/L (30-135); Estimated Glomerular Filt Rate > 60 mL/min (>60); Globulin 3.1 g/dL (1.7-4.1); Glucose 125 mg/dL (70-99); HEMOLYSIS < 15 (0-50); Lipase 92 U/L (23-300); Magnesium 2.2 mg/dL (1.6-2.3); Sodium 137 mmol/L (137-145); Total Protein 7.8 g/dL (6.3-8.2)
[2024-06-25 13:27] LABS: D Dimer 243 ng/ml (<500)
[2024-06-25 13:31] LABS: NT-proBNP (BNP-Adult 18+) 29 pg/mL (<125); Troponin I < 0.012 ng/mL (0.01-0.034)
[2024-06-25 14:10] LABS: TSH w/ Reflex to FT4 1.86 uIU/mL (0.47-4.68)
== END 2024-06-25 15:24 | disposition home or self-care (01) ==
PROVIDERS: Emergency Provider Emergency Medicine; Family Provider Student in an Organized Health Care Education/Training Program; PCP Student in an Organized Health Care Education/Training Program
DX: I47.10 Supraventricular tachycardia, unspecified (principal); R07.9 Chest pain, unspecified
CPT/HCPCS: 36415; 71045; 80053; 82550; 83690; 83735; 83880; 84443; 84484; 85025; 85379; 85610; 85730; 93005; 96374; 99284; J0153

== ENCOUNTER → 2024-07-02 13:39 | Outpatient (CLI) | payer OTHER, SELFPAY ==
--- NOTE | 2024-07-02 13:39 | DI.CT.S_ITS ---
PROCEDURE: CT CHEST WO CON INDICATIONS: nodules seen on XR TECHNIQUE: Noncontrast 5 mm thick sections acquired from the pulmonary apices to the posterior costophrenic angles. 1 mm lung window, 5 mm thick coronal and sagittal and 7 mm axial MIP reformats were then acquired. For radiation dose reduction, the following was used: automated exposure control, adjustment of mA and/or kV according to patient size. COMPARISON: [facility], , XR CHEST 1V, 06/25/2024, 12:58. FINDINGS: Image quality: Diagnostic. Lower Neck: No enlarged lymph nodes. Thyroid: No thyroid nodules which require sonographic follow up, per consensus guidelines. Axillae: No enlarged lymph nodes. Chest Wall: Unremarkable. Bones: Unremarkable. Lungs and Pleura: No pneumothorax or pleural effusions. No consolidation or suspicious nodules. Mild interstitial prominence a nonspecific appearance which may indicate prior smoking history. Heart: Heart size is normal. No pericardial effusion. Thoracic Vessels: The aorta and pulmonary arteries demonstrate normal size. Mediastinum and Wen: No enlarged lymph nodes. Esophagus: No wall thickening. No hiatal hernia. Upper Abdomen: Visualized upper abdomen solid organs and bowel loops appear normal. IMPRESSION: No mass or emphysematous change is found. Mild interstitial prominence which may indicate prior smoking history. No acute disease is found. Dictated by: Kaveh Romero M.D. on 07/02/2024 at 15:28 Approved by: Kaveh Romero M.D. on 07/02/2024 at 15:29
== END ==
PROVIDERS: Family Provider Student in an Organized Health Care Education/Training Program; PCP Student in an Organized Health Care Education/Training Program; Referring Provider Student in an Organized Health Care Education/Training Program; Visit Provider Student in an Organized Health Care Education/Training Program
DX: R91.8 Other nonspecific abnormal finding of lung field (principal)
CPT/HCPCS: 71250

== ENCOUNTER → 2024-07-14 09:54 | Outpatient (CLI) | payer OTHER, SELFPAY | PROVIDERS: Family Provider Student in an Organized Health Care Education/Training Program; PCP Student in an Organized Health Care Education/Training Program; Referring Provider Student in an Organized Health Care Education/Training Program; Visit Provider Student in an Organized Health Care Education/Training Program | DX: R91.8 Other nonspecific abnormal finding of lung field (principal) | CPT/HCPCS: 94060; 94726; 94729 ==

== ENCOUNTER → 2024-07-15 06:38 | Outpatient (CLI) | payer OTHER, SELFPAY ==
--- NOTE | 2024-07-15 06:39 | DI.ECHO.S_ITS ---
[facility]+ [facility] : : [address] : : [place] : : [id number] : : Phone: [phone] Echocardiogram Report + + :Name: KAI ROCHE Study Date: 07/15/2024 Height: 65 in : :Hospital ReadingLocation: Weight: 145 lb : : Gender: Female BSA: 1.7 m2 : :: 1975 Age: 49 yrs BP: 124/85 mmHg: :Reason For Study: SVT, SEEN IN ED 06/25 : :Ordering Physician: SEYMOUR, : :DOUGLAS Performed By: Yamilka Chamorro : :Referring: DOUGLAS AHUJA : + + Interpretation Summary 1) Normal left ventricular thickness, size, wall motion, and systolic function (EF 60-65%). 2) Normal right ventricular size and function. 3) No significant valvular abnormalities. 4) No prior Echo available for comparison. Procedure: A two-dimensional transthoracic echocardiogram with color flow and Doppler was performed. The study quality was technically adequate. There is no prior echocardiogram noted for this patient. The patient was in sinus rhythm with heart rates between 59-77 bpm during the exam. Left Ventricle: The left ventricle is normal in size and wall thickness. The ejection fraction is estimated to be 60-65%. Left ventricular systolic function appears normal without focal wall motion abnormalities. Right Ventricle: The right ventricle is normal in size and function. Atria: The left atrial size is normal. Right atrial size is normal. There is no Doppler evidence for an interatrial shunt. Mitral Valve: The mitral valve leaflets appear to open well. There is trace mitral regurgitation. Aortic Valve: The aortic valve is trileaflet. The aortic valve opens well. There is no aortic valve stenosis. No aortic regurgitation is present. Tricuspid Valve: The tricuspid valve leaflets are thin and pliable. There is trace tricuspid regurgitation. Pulmonary artery pressures cannot be estimated because of the lack of a measurable TR jet velocity but the IVC suggests a CVP of around 3 mmHg. Pulmonic Valve: The pulmonic valve leaflets are thin and pliable; valve motion is normal. There is no pulmonic valvular regurgitation. Great Vessels: The aortic root is normal size. The dimensions of the ascending aorta are normal. The IVC is of normal diameter and collapses greater than 50% with a sniff. This suggests a low right atrial pressure of 3 mm Hg. Pericardium/ Pleura There is no pericardial effusion. There is no pleural effusion. MMode/2D Measurements & Calculations LVIDd: 4.5 cm LVOT diam: 2.0 cm LVIDs: 3.1 cm Ao root diam: 2.7 cm FS: 30.8 % asc Aorta Diam: 2.9 cm EPSS: 0.44 cm Ao Arch Diam (Prox Trans): 2.7 cm IVSd: 0.88 cm LVPWd: 0.71 cm LV velazco. diameter/BSA (cm/m^2): 2.6 LV sys. diameter/BSA (cm/m^2): 1.8 LA A2 area: 16.1 cm2 RA long axis: 4.2 cm LA A4 area: 11.6 cm2 RA area: 12.1 cm2 LA length (vol): 4.4 cm RA vol: 29.7 ml LA vol: 36.1 ml RA : 17.2 ml/m2 LA vol index: 20.9 ml/m2 IVC diam: 1.1 cm RVD1 (basal): 2.5 cm RVD2 (mid): 2.0 cm TAPSE: 1.7 cm Doppler Measurements & Calculations Ao V2 max: 133.2 cm/sec LVOT Max Kirt: 99.2 cm/sec Ao V2 mean: 92.3 cm/sec LV V1 max P.9 mmHg Ao max P.1 mmHg LV V1 VTI: 19.3 cm Ao mean P.7 mmHg JHONATHAN(I,D): 2.2 cm2 Ao V2 VTI: 27.5 cm JHONATHAN(V,D): 2.3 cm2 sev ratio: 0.70 JHONATHAN indexed to BSA (cm^2/m^2): 1.3 MV E max kirt: 64.8 cm/sec PA V2 max: 93.5 cm/sec MV A max kirt: 50.0 cm/sec PA V2 mean: 64.1 cm/sec MV E/A: 1.3 PA mean P.8 mmHg Med Peak E' Kirt: 7.9 cm/sec PA pr(Accel): 10.5 mmHg E/E' med: 8.2 Lat Peak E' Kirt: 11.1 cm/sec E/E' lat: 5.9 E/e' average: 7.1 MV dec time: 0.18 sec SV(LVOT): 60.8 ml Reading Physician:12:23 PM
== END ==
PROVIDERS: Family Provider Student in an Organized Health Care Education/Training Program; PCP Student in an Organized Health Care Education/Training Program; Referring Provider Student in an Organized Health Care Education/Training Program; Visit Provider Student in an Organized Health Care Education/Training Program
DX: I47.10 Supraventricular tachycardia, unspecified (principal)
CPT/HCPCS: 93306

== ENCOUNTER → 2024-07-15 07:44 | Outpatient (CLI) | payer OTHER, SELFPAY ==
--- NOTE | 2024-07-15 07:45 | DI.MG.S_ITS ---
MM screening mammo BI: 07/15/2024. BI-RADS: 1 CLINICAL: 49-year old female for bilateral screening mammogram. Tyrer-Cuzick lifetime risk of 30.7%. Current reported family history of breast cancer: maternal grandmother and mother. The patient is status-post reduction mammoplasty. PRIOR EXAMS 05/23/2023, 11/28/2022, 03/07/2022, 11/27/2021. MAMMOGRAPHY TECHNIQUE: 2D and 3D (tomosynthesis) digital mammographic views obtained, with additional images as needed for full coverage. Current study was also evaluated with a Computer Aided Detection (CAD) system. DENSITY C. The breasts are heterogeneously dense, which may obscure small masses. MAMMOGRAPHY FINDINGS Bilateral: No suspicious mass, asymmetry, microcalcification, or other abnormality seen. IMPRESSION: * No evidence of malignancy. RECOMMENDATIONS Bilateral * According to the Tyrer-Cuzick Risk Assessment Model, based on the information provided your patient has a greater than 20% lifetime risk for developing breast cancer. Consider supplemental screening with breast MRI and participation in a high risk screening program. * Annual screening mammography. OVERALL ASSESSMENT CATEGORY BI-RADS-1: Negative. The [employer] recommends annual screening mammography beginning at age 40 for women with average risk of breast cancer. ELECTRONICALLY SIGNED: Mary Kam M.D. on 07/16/2024 at 01:34:19 PM PT Interpreting Station ID: [id number]
== END ==
PROVIDERS: Family Provider Student in an Organized Health Care Education/Training Program; PCP Student in an Organized Health Care Education/Training Program; Referring Provider Student in an Organized Health Care Education/Training Program; Visit Provider Student in an Organized Health Care Education/Training Program
DX: Z12.31 Encounter for screening mammogram for malignant neoplasm of breast (principal); R92.333 Mammographic heterogeneous density, bilateral breasts; Z80.3 Family history of malignant neoplasm of breast
CPT/HCPCS: 77063; 77067

== ENCOUNTER → 2024-07-15 08:06 | Outpatient (CLI) | payer OTHER, SELFPAY ==
[2024-07-15 09:23] LABS: Cortisol AM (Before 10AM) 8.32 ug/dL (4.46-22.7)
== END ==
PROVIDERS: Family Provider Student in an Organized Health Care Education/Training Program; PCP Student in an Organized Health Care Education/Training Program; Referring Provider Student in an Organized Health Care Education/Training Program; Visit Provider Student in an Organized Health Care Education/Training Program
DX: Z79.890 Hormone replacement therapy (principal)
CPT/HCPCS: 36415; 82533; 82672; 93306

== ENCOUNTER → 2024-07-21 08:04 | Outpatient (CLI) | payer OTHER, SELFPAY | LOC: CAR 08:04 | PROVIDERS: Family Provider Student in an Organized Health Care Education/Training Program; PCP Student in an Organized Health Care Education/Training Program; Referring Provider Student in an Organized Health Care Education/Training Program; Visit Provider Student in an Organized Health Care Education/Training Program | DX: I47.10 Supraventricular tachycardia, unspecified (principal); R07.89 Other chest pain | CPT/HCPCS: 93246 ==

== ENCOUNTER → 2025-01-11 08:55 | Outpatient (CLI) | payer OTHER, SELFPAY ==
[2025-01-11 11:11] LABS: Appearance Urine UA SL CLOUDY; Bilirubin Urine UA NEGATIVE (NEGATIVE); Color Urine UA YELLOW; Glucose Urine UA NEGATIVE (Negative); Ketones Urine UA NEGATIVE (NEGATIVE); Leukocyte Esterase Urine UA NEGATIVE (NEGATIVE); Nitrite Urine UA NEGATIVE (Negative); Occult Blood Urine UA NEGATIVE (Negative); Protein Urine UA NEGATIVE (Negative); Specific Gravity Urine UA 1.025 (1.000-1.035); Urobilinogen Urine UA 0.2 E.U./dL (0.2)
[2025-01-11 11:17] LABS: pH Urine UA 6.0 (4.5-8.0)
[2025-01-11 11:26] LABS: Culture Indicated Urine Cult Not Indicated
== END ==
PROVIDERS: Family Provider Student in an Organized Health Care Education/Training Program; PCP Student in an Organized Health Care Education/Training Program; Visit Provider Obstetrics & Gynecology Gynecology
DX: R35.0 Frequency of micturition (principal)
CPT/HCPCS: 81001